=== PATIENT | female | born 1945 | race Caucasian/White ===

== ENCOUNTER 2017-02-09 13:12 | Emergency (ER) | payer MEDICARE, OTHER ==
[2017-02-09 14:25] LABS: #Basophils 0.1 thou/uL (0.0-0.2); #Eosinphils 0.2 thou/uL (0.0-0.7); #Lymphocytes 1.5 thou/uL (1.20-3.40); #Monocytes 0.8 thou/uL (0.11-0.59); #Neutrophils 4.5 thou/uL (1.40-6.50); %Basophils 1.3 % (0.0-1.0); %Eosinophils 3.4 % (0.0-10.0); Hematocrit 35.3 % (36.0-47.0); Mean Platelet Volume 7.1 fL (7.4-10.4); White Blood Cell (WBC) Count 7.2 thou/uL (4.8-10.8)
[2017-02-09 14:44] LABS: ALT (SGPT) 14 U/L (8-55); AST (SGOT) 19 U/L (5-34); Alkaline Phosphatase 108 U/L (40-150); Anion Gap 14 mmol/L (10-20); BUN (Urea Nitrogen) 22 mg/dL (9.8-20.1); Bilirubin, Total 0.4 mg/dL (0.2-1.2); Calc. Creatinine Clearance 0 mL/min (70-130); Calcium 10.1 mg/dL (7.8-10.44); Carbon Dioxide 27 mmol/L (23-31); Chloride 102 mmol/L (98-107); Estimated GFR-MDRD 32; Globulin 2.8 g/dL (2.4-3.5); Lipase 29 U/L (8-78)
[2017-02-09 14:45] LABS: Troponin I Less than 0.010 ng/mL (< 0.028)
--- NOTE | 2017-02-09 15:10 | RAD ---
PA AND LATERAL CHEST: Date: 02/09/17 HISTORY: Intermittent right upper quadrant abdominal pain over the last 3-4 days. Nausea. COMPARISON: 02/12/16. FINDINGS: Cardiac silhouette and pulmonary vasculature are within normal limits. Radiopaque suture material is again seen at the right lung apex and there is symmetric biapical pleural and parenchymal scarring ag ain present. Lungs are otherwise clear. Area of scarring overlying the right hilar region is also aga in seen and unchanged. There is right convex curvature of the thoracic spine, stable from prior study . Vascular calcifications seen in thoracic aorta. IMPRESSION: 1. Stable chronic lung changes without evidence of an acute cardiopulmonary process. 2. Right convex scoliosis thoracic spine. POS: [facility]
== END 2017-02-09 15:11 | disposition home or self-care (01) ==
LOC: SCSER 13:12
DX: R10.11 Right upper quadrant pain (principal); R11.0 Nausea; J44.9 Chronic obstructive pulmonary disease, unspecified; E03.9 Hypothyroidism, unspecified; F41.9 Anxiety disorder, unspecified; Z86.73 Personal history of transient ischemic attack (TIA), and cerebral infarction without residual deficits
CPT/HCPCS: 36415; 71020; 80053; 82553; 83690; 84484; 85025; 93005

== ENCOUNTER 2017-02-16 11:20 | Emergency (ER) | payer MEDICARE, OTHER ==
[2017-02-16 12:10] LABS: #Basophils 0.2 thou/uL (0.0-0.2); #Eosinphils 0.1 thou/uL (0.0-0.7); #Monocytes 1.2 thou/uL (0.11-0.59); #Neutrophils 9.1 thou/uL (1.40-6.50); %Basophils 1.6 % (0.0-1.0); %Lymphocytes 15.8 % (21.0-51.0); %Monocytes 9.5 % (0.0-10.0); Hematocrit 36.8 % (36.0-47.0); Mean Platelet Volume 7.6 fL (7.4-10.4); Red Blood Cell (RBC) Count 3.83 mill/uL (4.20-5.40); White Blood Cell (WBC) Count 12.7 thou/uL (4.8-10.8)
[2017-02-16 12:19] LABS: ALT (SGPT) 13 U/L (8-55); AST (SGOT) 18 U/L (5-34); Alkaline Phosphatase 100 U/L (40-150); Anion Gap 17 mmol/L (10-20); BUN (Urea Nitrogen) 30 mg/dL (9.8-20.1); Bilirubin, Total 0.5 mg/dL (0.2-1.2); Calc. Creatinine Clearance 0 mL/min (70-130); Calcium 10.4 mg/dL (7.8-10.44); Carbon Dioxide 24 mmol/L (23-31); Chloride 100 mmol/L (98-107); Estimated GFR-MDRD 37; Globulin 2.9 g/dL (2.4-3.5); Lipase 20 U/L (8-78); Protein, Total 7.3 g/dL (6.0-8.3)
[2017-02-16 12:20] LABS: Troponin I Less than 0.010 ng/mL (< 0.028)
--- NOTE | 2017-02-16 12:55 | RAD ---
PORTABLE CHEST ONE VIEW 02/16/2017 at 12:20 p.m.: HISTORY: Cough. FINDINGS: Comparison is made with the exam of 01/19/2017. The heart size is normal. Changes of COPD are again seen. No confluent areas of consolidation, pneu mothorax, or pleural effusions are identified. Mild dextroscoliosis of the thoracic spine incidental ly demonstrated. IMPRESSION: No radiographic evidence of acute cardiopulmonary process. POS: [facility]
[2017-02-16] MEDS ORDERED: Ondansetron HCl/PF 4 MG/2 ML Vial ONE (13:58)
[2017-02-16 15:42] LABS: Bilirubin Negative (Negative); Blood, Urine Negative (Negative); Glucose, Urine (Dipstick) Negative (Negative); Ketone, Urine Negative (Negative); Nitrite Negative (Negative); Protein, Urine (Dipstick) Negative (Neg-Trace); RBC/HPF None Seen HPF (0-3); Urobilinogen 0.2 mg/dL (0.2-1.0)
[2017-02-16 15:43] LABS: Bacteria/HPF 4+ HPF (None Seen)
[2017-02-16] MEDS ORDERED: Cephalexin 500 MG CAP ONE (16:05)
--- NOTE | 2017-02-21 11:40 | EKG ---
Test Reason : Blood Pressure : / mmHG Vent. Rate : 086 BPM Atrial Rate : 086 BPM P-R Int : 136 ms QRS Dur : 068 ms QT Int : 360 ms P-R-T Axes : 032 042 052 degrees QTc Int : 430 ms Normal sinus rhythm Possible Left atrial enlargement Borderline ECG Confirmed by ARTEM ROBERTSON D.O. ([id number]), editor city ERICKA PEREZ ([id number]) on 02/21/2017 11:40:06 AM Referred By: Confirmed By:ARTEM ROBERTSON D.O.
== END 2017-02-16 16:20 | disposition home or self-care (01) ==
LOC: SCSER 11:20
DX: N39.0 Urinary tract infection, site not specified (principal); E86.0 Dehydration; E03.9 Hypothyroidism, unspecified; J43.9 Emphysema, unspecified; F41.9 Anxiety disorder, unspecified; F32.9 Major depressive disorder, single episode, unspecified; Z86.73 Personal history of transient ischemic attack (TIA), and cerebral infarction without residual deficits
CPT/HCPCS: 71010; 80053; 81003; 81015; 82553; 83690; 84484; 85025; 87077; 87086; 87186; 93005; 96361; 96374; J2405

== ENCOUNTER 2018-07-19 13:18 | Outpatient (CLI) | payer MEDICARE, OTHER ==
--- NOTE | 2018-07-19 13:44 | RAD ---
EXAM: Two views chest PROVIDED CLINICAL HISTORY: Dyspnea COMPARISON: 02/09/[address] thorax on 10/22/2016 FINDINGS: Cardiac silhouette and pulmonary vasculature are within normal limits. There is symmetric biapical pleural and parenchymal scarring with radiopaque suture material seen at the right lung base apex and calcification at the left lung apex. There is a linear area of increased density seen along the medial aspect of the right hemithorax extending from the right hilar region to the right lung base with suggested lucency medially. However, this is a stable finding compared to prior chest x-ray and is likely attributable to pleural based calcifications at the poste rior medial right mid and lower lung zones with lucency likely due to mach effect related to the dense pleural-based calcification. The lungs are otherwise clear and hyperinflated. Remote left-sided rib fractures are seen right convex scoliosis thoracic spine is again noted. Chest is overall stable from prior study. IMPRESSION: 1. No acute cardiopulmonary process. 2. Stable chronic lung changes..
== END 2018-07-19 13:19 | disposition home or self-care (01) ==
LOC: RAD 13:18
PROVIDERS: ATTEND Internal Medicine Critical Care Medicine
DX: R06.00 Dyspnea, unspecified (principal)
CPT/HCPCS: 71046

== ENCOUNTER 2018-08-18 10:17 | Emergency (ER) | payer MEDICARE, OTHER ==
--- NOTE | 2018-08-18 10:54 | RAD ---
XR Chest 1 View Portable HISTORY: Dyspnea COMPARISON: 07/19/2018 FINDINGS: The heart size is normal. Chronic changes are again seen. Biapical pleural and parenchymal scarring but there are radiopaque suture material in the right lung apex and calcification of the left lung apex are redemonstrated. The lungs are well expanded without focal areas of consolidation, pneumothorax or pleural effusions. IMPRESSION: No radiographic evidence of acute cardiopulmonary process.
[2018-08-18 11:53] LABS: #Basophils 0.1 thou/uL (0.0-0.2); #Eosinphils 0.4 thou/uL (0.0-0.7); #Monocytes 0.9 thou/uL (0.11-0.59); #Neutrophils 7.1 thou/uL (1.40-6.50); %Basophils 1.3 % (0.0-1.0); %Monocytes 8.4 % (0.0-10.0); %Neutrophils 67.3 % (42.0-75.0); Hemoglobin 12.2 g/dL (12.0-16.0); Mean Corpuscular HGB CONC 32.3 g/dL (32.0-36.0); Mean Corpuscular Hemoglobin 31.8 pg (27.0-31.0); Mean Corpuscular Volume 98.6 fL (78.0-98.0); Mean Platelet Volume 8.5 fL (7.4-10.4); Platelet Count 259 thou/uL (130-400); RBC Distribution Width 12.2 % (11.5-14.5); Red Blood Cell (RBC) Count 3.85 mill/uL (4.20-5.40); White Blood Cell (WBC) Count 10.5 thou/uL (4.8-10.8)
[2018-08-18 12:19] LABS: ALT (SGPT) 15 U/L (8-55); AST (SGOT) 20 U/L (5-34); Albumin 4.7 g/dL (3.4-4.8); Alkaline Phosphatase 95 U/L (40-150); Anion Gap 18 mmol/L (10-20); BUN (Urea Nitrogen) 25 mg/dL (9.8-20.1); Bilirubin, Total 0.7 mg/dL (0.2-1.2); CK (CPK) 163 U/L (29-168); Calc. Creatinine Clearance 0 mL/min (70-130); Calcium 10.3 mg/dL (7.8-10.44); Carbon Dioxide 24 mmol/L (23-31); Chloride 101 mmol/L (98-107); Estimated GFR-MDRD 33; Globulin 2.5 g/dL (2.4-3.5); Glucose 93 mg/dL (83-110); Potassium 4.6 mmol/L (3.5-5.1); Protein, Total 7.2 g/dL (6.0-8.3); Sodium 138 mmol/L (136-145)
--- NOTE | 2018-08-18 13:31 | CT ---
Contrast-enhanced CTA chest. HISTORY: Shortness of breath. Contrast-enhanced CTA chest obtained with 2-D and 3-D reconstructions. Some areas of lung parenchymal scarring seen in the right lower lobe. Small pulmonary nodule seen in the right lower lobe unchanged since the previous exam. Calcifications seen in the aorta. Coronary artery calcination seen. No evidence of filling defects seen in the pulmonary arteries to suggest pulmonary emboli. A moderate size sliding hiatal hernia is seen. Extensive right pleural calcifications seen likely due to previous right-sided hemothorax which has r esolved. IMPRESSION: no evidence of pulmonary emboli.
--- NOTE | 2018-08-21 11:58 | EKG ---
Test Reason : SOB Blood Pressure : / mmHG Vent. Rate : 104 BPM Atrial Rate : 105 BPM P-R Int : 118 ms QRS Dur : 064 ms QT Int : 326 ms P-R-T Axes : 038 065 069 degrees QTc Int : 428 ms Sinus tachycardia Otherwise normal ECG Confirmed by XIOMARA BURNETT, CHRISSIE Infante ([id number]), assistant film editor JAYJAY GARCIA ([id number]) on 08/21/2018 11:57:46 AM Referred By: Confirmed By:CHRISSIE SOLANO MD
== END 2018-08-18 14:18 | disposition home or self-care (01) ==
LOC: ERS 10:17
DX: R06.02 Shortness of breath (principal); F41.9 Anxiety disorder, unspecified; F32.9 Major depressive disorder, single episode, unspecified; E03.9 Hypothyroidism, unspecified
CPT/HCPCS: 36415; 71045; 71275; 80053; 82550; 83605; 83880; 84484; 85025; 93005

== ENCOUNTER 2018-09-16 15:35 | Outpatient (CLI) | payer MEDICARE, OTHER ==
--- NOTE | 2018-09-16 16:00 | MMO ---
Bilateral MAMMO Bilat Screen [facility]DI+JADE. CLINICAL HISTORY: Patient is 73 years old and is seen for screening. The patient has no family history of breast cancer. The patient has no personal history of cancer. VIEWS: The views performed were: bilateral craniocaudal with tomosynthesis and bilateral mediolateral oblique with tomosynthesis. FILMS COMPARED: The present examination has been compared to prior imaging studies performed at [facility] on 09/29/2007 and 07/20/2009, and at [facility] on 08/15/1999 and 12/26/2005. MAMMOGRAM FINDINGS: There are scattered fibroglandular densities. There are vascular calcifications seen in both breasts. There are no suspicious masses, suspicious calcifications, or new areas of architectural distortion. IMPRESSION: A ROUTINE FOLLOW-UP MAMMOGRAM IN 1 YEAR IS RECOMMENDED. THE RESULTS OF THIS EXAM WERE SENT TO THE PATIENT. ACR BI-RADS Category 2 - Benign finding MAMMOGRAPHY NOTE: 1. A negative mammogram report should not delay a biopsy if a dominant of clinically suspicious mass is present. 2. Approximately 10% to 15% of breast cancers are not detected by mammography. 3. Adenosis and dense breasts may obscure an underlying neoplasm. Reported by: JUAN DIEGO BRITO MD Electonically Signed: [id number]
== END 2018-09-16 15:36 | disposition home or self-care (01) ==
LOC: BICMAMMO 15:35
PROVIDERS: ATTEND Obstetrics & Gynecology
DX: Z12.31 Encounter for screening mammogram for malignant neoplasm of breast (principal)
CPT/HCPCS: 77063; 77067

== ENCOUNTER 2018-10-13 14:25 | Observation (INO) | payer MEDICARE, OTHER ==
[2018-10-13 15:23] LABS: #Basophils 0.1 thou/uL (0.0-0.2); #Eosinphils 0.2 thou/uL (0.0-0.7); #Monocytes 0.8 thou/uL (0.11-0.59); #Neutrophils 6.4 thou/uL (1.40-6.50); %Basophils 1.3 % (0.0-1.0); %Eosinophils 2.4 % (0.0-10.0); %Lymphocytes 20.6 % (21.0-51.0); %Monocytes 8.2 % (0.0-10.0); %Neutrophils 67.6 % (42.0-75.0); Hemoglobin 12.1 g/dL (12.0-16.0); Mean Corpuscular HGB CONC 33.3 g/dL (32.0-36.0); Mean Corpuscular Hemoglobin 32.5 pg (27.0-31.0); Mean Corpuscular Volume 97.7 fL (78.0-98.0); Mean Platelet Volume 8.7 fL (7.4-10.4); Platelet Count 257 thou/uL (130-400); RBC Distribution Width 12.6 % (11.5-14.5); Red Blood Cell (RBC) Count 3.72 mill/uL (4.20-5.40); White Blood Cell (WBC) Count 9.5 thou/uL (4.8-10.8)
[2018-10-13 15:35] LABS: Anion Gap 17 mmol/L (10-20); BUN (Urea Nitrogen) 45 mg/dL (9.8-20.1); Calc. Creatinine Clearance 0 mL/min (70-130); Carbon Dioxide 24 mmol/L (23-31); Chloride 102 mmol/L (98-107); Estimated GFR-MDRD 29; Glucose 118 mg/dL (83-110); Potassium 4.1 mmol/L (3.5-5.1); Sodium 139 mmol/L (136-145)
--- NOTE | 2018-10-13 15:39 | RAD ---
TWO VIEWS CHEST: DATE: 10/13/2018. PROVIDED CLINICAL HISTORY: Cough. FINDINGS: Comparison 02/09/2017. Cardiac and mediastinal silhouette are unchanged in appearance. Vascular rachel cification involves the aortic arch. Extensive chronic obstructive changes are again seen. No focal consolidation, pleural fluid, or pneumothorax apparent. Sutures at the right lung apex are noted. Right convexity scoliosis of the thoracic spine is seen. IMPRESSION: No evidence for an acute cardiopulmonary process. POS: [facility]
[2018-10-13 17:11] LABS: Bilirubin Negative (Negative); Blood, Urine Negative (Negative); Clarity Clear (Clear); Glucose, Urine (Dipstick) Negative (Negative); Leukocyte Negative (Negative); Nitrite Negative (Negative); Protein, Urine (Dipstick) Negative (Neg-Trace); Urobilinogen 0.2 mg/dL (Less than 2)
[2018-10-13 18:58] VITALS: BMI 22.4
[2018-10-13] MEDS ORDERED: Sodium Chloride 0.9% 1,000 ML IV SCH (19:00)
[2018-10-13 19:23] LABS: Lactic Acid 1.1 mmol/L (0.5-2.2)
[2018-10-13] MEDS: Sodium Chloride 0.9% 1,000 ML IV SCH (19:57)
[2018-10-13] MEDS ORDERED: Ondansetron PF 4 MG/2 ML Vial IVP PRN (22:15)
[2018-10-13] MEDS ORDERED: Acetaminophen 325 MG TAB PO PRN (22:15)
[2018-10-13] MEDS ORDERED: Ipratropium Bromide 2.5 ml Neb NEB PRN (22:17)
[2018-10-13] MEDS ORDERED: Budesonide 0.5 MG/2 ML NEB NEB PRN (22:17)
[2018-10-13] MEDS ORDERED: Atorvastatin Calcium 10 MG TAB PO SCH (23:00)
[2018-10-13] MEDS ORDERED: ALPRAZolam 0.5 MG TAB PO SCH (23:00)
[2018-10-13] MEDS ORDERED: Calcium Carbonate + Vit D 1 TAB PO SCH (23:00)
--- NOTE | 2018-10-14 00:06 | HP ---
CHIEF COMPLAINT: Back pain, concern for "kidney infection," generalized weakness. HISTORY OF PRESENT ILLNESS: Ms. Estrella is a pleasant 73-year-old female with past medical history significant for mild dementia, on Namenda, history of previous TIA, COPD, followed by Dr. Cherry, and hypothyroidism, who presented to the hospital at the behest of her friend and daughter with a 3- to 4-day history of generalized weakness. The patient's daughter is at the bedside and provides some of the history. The patient's initial symptoms began on , which began with some back pain. The patient does have known osteoporosis and disk disease in L4 and L5, and does have chronic back pain; however, the patient did believe it was a little bit worse. She had some urinary hesitancy as well, although no other complaints of dysuria. She had no fever or chills. She did call her primary care physician, Dr. Gresham, who recommended antibiotic therapy, and the patient was prescribed some Keflex. The patient did try to take this medication, but had some associated nausea and vomiting. Over the next several days, she continued to feel generally weak. Her daughter called Dr. Gresham's office requesting urinalysis and visit, but decided to bring the patient to the emergency department for further workup and treatment instead. On arrival to our facility, her workup has been largely negative aside from an initial lactic acid of 2.4. She had no evidence of urinary tract infection on UA, her chest x-ray was clear. No white count and the patient was afebrile. Her lab work was otherwise notable for a creatinine of 1.72, and BUN of 45. The patient does have stage 3 chronic kidney disease, but baseline creatinine for her does appear to be 1.2 to 1.4. Given her acute on chronic kidney injury and mild dehydration, the patient was admitted for observation. Of note , her second lactic acid was negative. REVIEW OF SYSTEMS: 12-point review of systems performed and is negative except that stated above. PAST MEDICAL HISTORY: COPD, followed by Dr. Cherry; TIA, on aspirin and Plavix. Dementia; hypothyroidism; history of osteoporosis along with degenerative joint disease, specifically L4-L5; scoliosis. PAST SURGICAL HISTORY: Appendectomy, cholecystectomy, tonsillectomy, and bilateral cataract removal. PSYCHIATRIC HISTORY: Positive for anxiety and depression, on Wellbutrin, since her several years ago. SOCIAL HISTORY: The patient does live independently; however, her daughter, who is a registered dental hygienist, manages all of her medications. She drinks alcohol socially, she was a former smoker, but quit in 2013. ALLERGIES: SULFA DRUG, CODEINE, AND GUAIFENESIN. HOME MEDICATIONS: 1. Fluticasone nasal spray 2 sprays each naris b.i.d. 2. Xanax 0.5 mg p.o. at bedtime. 3. Aspirin 81 mg daily. 4. Atorvastatin 5 mg p.o. at bedtime. 5. Biotin 3000 mcg p.o. b.i.d. 6. Pulmicort neb solution 0.5 mg neb daily p.r.n. 7. Wellbutrin 100 mg p.o. daily. 8. Calcium carbonate/vitamin D3 600/125 units one tablet p.o. b.i.d. 9. Plavix 75 mg daily. 10. Vitamin B12 1000 mcg daily. 11. Ferrous sulfate slow-release 47.5 mg tablet one tablet p.o. b.i.d. 12. Atrovent nebulizer one neb q.8 hours p.r.n. 13. Levothyroxine 50 mcg daily. 14. Memantine 5 mg tablet daily. PHYSICAL EXAMINATION: VITAL SIGNS: Blood pressure is 154/68, pulse is 83, respirations are 20, O2 saturation is 96% on room air, and temperature is 97.8. GENERAL: The patient is an elderly female, eating her dinner, resting comfortably, in no acute distress. HEENT: Head is atraumatic and normocephalic. Mucous membranes are moist. NECK: Trachea is midline. No JVD. CV: S1 and S2. Regular rate and rhythm. No appreciable murmurs, rubs or gallops. LUNGS: Regular respiratory rate and pattern, overall decreased vesicular breath sounds bilaterally, no audible wheezing or rhonchi. ABDOMEN: Positive bowel sounds. Soft and nontender. EXTREMITIES: No edema. SKIN: Warm and dry. NEUROLOGIC: Cranial nerves 2 through 12 are grossly intact. The patient is nonfocal. LABORATORY DATA: White blood cell count 9.5, hemoglobin 12.1, hematocrit 36.3, and platelet count 257. Sodium 139, potassium 4.1, carbon dioxide 24, anion gap 17 , BUN 45, creatinine 1.72, and glucose 118. Lactic acid 2.4 and 1.1 respectively. Calcium was 10. Urinalysis was negative. ASSESSMENT: 1. Back pain and urinary hesitancy, no evidence of urinary tract infection at this time. 2. Generalized weakness and fatigue secondary to poor oral intake and mild dehydration. 3. Acute on chronic stage 3 kidney disease secondary to above, creatinine 1.72 on arrival. 4. Chronic obstructive pulmonary disease, without evidence of acute exacerbation , followed by Dr. Cherry. 5. Hypothyroidism. 6. Previous transient ischemic attack, on aspirin and Plavix. 7. Mild dementia, the patient is still able to live independently. PLAN: At this time, we will provide IV fluid resuscitation, and we will recheck a BMP in the morning. I will consult Physical Therapy as well,k as she may benefit from outpatient physical therapy versus rehab based on their recommendations. I will recheck thyroid panel. Given the patient's urinary symptoms without evidence of any infection, we will obtain a postvoid bladder scan to assess for any urinary retention. We will restart her home medications. DVT and GI prophylaxis have been addressed. Expect discharge in the morning if her kidney function improves. Further recommendations based on hospital course. Job ID: [id number] MTDD
[2018-10-14 05:52] LABS: #Basophils 0.1 thou/uL (0.0-0.2); #Eosinphils 0.6 thou/uL (0.0-0.7); #Lymphocytes 2.7 thou/uL (1.20-3.40); #Monocytes 0.9 thou/uL (0.11-0.59); #Neutrophils 4.3 thou/uL (1.40-6.50); %Basophils 1.1 % (0.0-1.0); %Eosinophils 6.7 % (0.0-10.0); %Lymphocytes 31.4 % (21.0-51.0); %Monocytes 10.5 % (0.0-10.0); %Neutrophils 50.3 % (42.0-75.0); Hemoglobin 10.1 g/dL (12.0-16.0); Mean Corpuscular HGB CONC 33.9 g/dL (32.0-36.0); Mean Corpuscular Hemoglobin 33.5 pg (27.0-31.0); Mean Corpuscular Volume 98.7 fL (78.0-98.0); Mean Platelet Volume 8.3 fL (7.4-10.4); Platelet Count 207 thou/uL (130-400); RBC Distribution Width 11.9 % (11.5-14.5); Red Blood Cell (RBC) Count 3.03 mill/uL (4.20-5.40); White Blood Cell (WBC) Count 8.5 thou/uL (4.8-10.8)
[2018-10-14] MEDS ORDERED: Levothyroxine Sodium 50 MCG TAB PO SCH (06:00)
[2018-10-14] MEDS: Sodium Chloride 0.9% 1,000 ML IV SCH (06:02)
[2018-10-14 06:13] LABS: Anion Gap 10 mmol/L (10-20); BUN (Urea Nitrogen) 30 mg/dL (9.8-20.1); Calc. Creatinine Clearance 40 mL/min (70-130); Calcium 9.5 mg/dL (7.8-10.44); Carbon Dioxide 24 mmol/L (23-31); Chloride 105 mmol/L (98-107); Estimated GFR-MDRD 45; Glucose 92 mg/dL (83-110); Potassium 3.8 mmol/L (3.5-5.1); Sodium 135 mmol/L (136-145)
[2018-10-14 06:30] LABS: Free T4 (Free Thyroxine) 0.99 ng/dL (0.70-1.48); Thyroid Stimulating Hormone 1.3575 uIU/mL (0.35-4.94)
[2018-10-14] MEDS ORDERED: Aspirin 81 mg Enteric Coated Tablet PO SCH (09:00)
[2018-10-14] MEDS ORDERED: Ferrous Sulfate 325 MG TAB PO SCH ×2 (09:00)
[2018-10-14] MEDS ORDERED: Cyanocobalamin (Vitamin B-12) 1,000 MCG TAB PO SCH (09:00)
[2018-10-14] MEDS ORDERED: BIOTIN 3000 MCG PO SCH (09:00)
[2018-10-14] MEDS ORDERED: Clopidogrel Bisulfate 75 MG TAB PO SCH (09:00)
[2018-10-14] MEDS ORDERED: Calcium Carbonate + Vit D 1 TAB PO SCH (09:00)
[2018-10-14] MEDS ORDERED: buPROPion HCl 100 MG TAB PO SCH (09:00)
[2018-10-14] MEDS ORDERED: Enoxaparin Sodium 30 MG/0.3 ML SYRINGE SC SCH (09:00)
[2018-10-14] MEDS ORDERED: Famotidine 20 MG TAB PO SCH (09:00)
[2018-10-14 12:41] VITALS: BP 106/53; TEMP 98.5
[2018-10-14] MEDS ORDERED: Atorvastatin Calcium 10 MG TAB PO SCH (21:00)
[2018-10-14] MEDS ORDERED: ALPRAZolam 0.5 MG TAB PO SCH (21:00)
== END 2018-10-14 16:39 | disposition home or self-care (01) ==
LOC: SCSER 14:25 → 2SW 17:30
PROVIDERS: ADMIT Family Medicine; ATTEND Family Medicine
DX: E86.0 Dehydration (principal); R53.1 Weakness; R53.83 Other fatigue; F03.90 Unspecified dementia, unspecified severity, without behavioral disturbance, psychotic disturbance, mood disturbance, and anxiety; J44.9 Chronic obstructive pulmonary disease, unspecified; E03.9 Hypothyroidism, unspecified; M81.0 Age-related osteoporosis without current pathological fracture; M51.36 Other intervertebral disc degeneration, lumbar region; F41.9 Anxiety disorder, unspecified; F32.9 Major depressive disorder, single episode, unspecified; N18.3 Chronic kidney disease, stage 3 (moderate); N17.9 Acute kidney failure, unspecified; Z86.73 Personal history of transient ischemic attack (TIA), and cerebral infarction without residual deficits; Z87.891 Personal history of nicotine dependence; Z79.02 Long term (current) use of antithrombotics/antiplatelets; Z79.82 Long term (current) use of aspirin; Z79.899 Other long term (current) drug therapy; Z88.8 Allergy status to other drugs, medicaments and biological substances
CPT/HCPCS: 51701; 71046; 80048 ×2; 81003; 83605; 84439; 84443; 85025 ×2; 87040; 87086; 87149 ×2; 93005; 94640 ×2; 96360; 96361 ×2; 96372; 97116; 97139 ×2; 99285; G0378 ×3; 36415; J1650; J7620

== ENCOUNTER 2018-10-17 15:03 | Observation (INO) | payer MEDICARE, OTHER ==
[2018-10-17 15:55] LABS: #Basophils 0.1 thou/uL (0.0-0.2); #Eosinphils 0.7 thou/uL (0.0-0.7); #Lymphocytes 2.2 thou/uL (1.20-3.40); #Monocytes 0.7 thou/uL (0.11-0.59); #Neutrophils 5.6 thou/uL (1.40-6.50); %Basophils 1.4 % (0.0-1.0); %Eosinophils 7.3 % (0.0-10.0); %Lymphocytes 23.8 % (21.0-51.0); %Monocytes 7.2 % (0.0-10.0); %Neutrophils 60.3 % (42.0-75.0); Hemoglobin 11.4 g/dL (12.0-16.0); Mean Corpuscular HGB CONC 33.7 g/dL (32.0-36.0); Mean Corpuscular Volume 97.9 fL (78.0-98.0); Mean Platelet Volume 8.8 fL (7.4-10.4); Platelet Count 236 thou/uL (130-400); RBC Distribution Width 12.8 % (11.5-14.5); Red Blood Cell (RBC) Count 3.45 mill/uL (4.20-5.40); White Blood Cell (WBC) Count 9.4 thou/uL (4.8-10.8)
[2018-10-17 16:09] LABS: ALT (SGPT) 13 U/L (8-55); AST (SGOT) 19 U/L (5-34); Albumin 4.1 g/dL (3.4-4.8); Alkaline Phosphatase 69 U/L (40-150); Anion Gap 16 mmol/L (10-20); BUN (Urea Nitrogen) 15 mg/dL (9.8-20.1); Bilirubin, Total 0.5 mg/dL (0.2-1.2); CK (CPK) 149 U/L (29-168); Calc. Creatinine Clearance 0 mL/min (70-130); Calcium 9.9 mg/dL (7.8-10.44); Carbon Dioxide 24 mmol/L (23-31); Chloride 104 mmol/L (98-107); Estimated GFR-MDRD 42; Globulin 2.4 g/dL (2.4-3.5); Glucose 100 mg/dL (83-110); Potassium 4.3 mmol/L (3.5-5.1); Protein, Total 6.5 g/dL (6.0-8.3); Sodium 140 mmol/L (136-145)
--- NOTE | 2018-10-17 16:18 | CT ---
CT BRAIN WITHOUT CONTRAST: Date: 10/17/18 HISTORY: Slurred speech, left arm numbness. FINDINGS: Comparison made with exam of 10/22/16. Changes of cortical atrophy and chronic small vessel ischemic disease are again seen. The ventricular size is stable and the basilar cisterns are patent. No evidence of acute infarct, hemorrhage, midlin e shift, or abnormal extra-axial fluid collections are seen. The bony calvarium is intact. The visual ized paranasal sinuses and mastoid air cells are well aerated. IMPRESSION: No CT evidence of acute intracranial process. POS: [facility]
--- NOTE | 2018-10-17 16:19 | RAD ---
PORTABLE CHEST 1 VIEW: Date: 10/17/18 Time: 1605 hours HISTORY: Chest pain. FINDINGS: Comparison made with exam of 10/13/18. Changes of COPD are again seen. The heart size is normal. No lobar consolidation, pneumothoraces, or pleural effusions are seen. IMPRESSION: No acute process. POS: [facility]
[2018-10-17] MEDS ORDERED: Aspirin Chewable 81 MG TAB ONE (16:23)
[2018-10-17 17:51] VITALS: BMI 22.3
[2018-10-17] MEDS ORDERED: ALPRAZolam 0.5 MG TAB PO SCH (21:30)
[2018-10-17] MEDS ORDERED: Atorvastatin Calcium 10 MG TAB PO SCH (21:30)
[2018-10-17] MEDS ORDERED: hydrALAZINE 20 MG/ML VIAL SLOW IVP PRN (22:20)
[2018-10-17] MEDS ORDERED: Ondansetron ODT 4 MG TAB PO PRN (22:20)
[2018-10-17] MEDS ORDERED: Acetaminophen 650 MG Suppository PR PRN (22:20)
[2018-10-17] MEDS ORDERED: Ondansetron PF 4 MG/2 ML Vial IVP PRN (22:20)
[2018-10-17] MEDS ORDERED: Budesonide 0.5 MG/2 ML NEB NEB PRN (22:26)
[2018-10-17] MEDS ORDERED: Ipratropium Bromide 2.5 ml Neb NEB PRN (22:26)
[2018-10-17] MEDS ORDERED: Atorvastatin Calcium 40 MG TAB PO SCH (22:45)
[2018-10-18 04:58] LABS: #Basophils 0.1 thou/uL (0.0-0.2); #Eosinphils 0.6 thou/uL (0.0-0.7); #Lymphocytes 2.9 thou/uL (1.20-3.40); #Monocytes 0.8 thou/uL (0.11-0.59); #Neutrophils 4.6 thou/uL (1.40-6.50); %Basophils 0.8 % (0.0-1.0); %Eosinophils 6.9 % (0.0-10.0); %Lymphocytes 32.5 % (21.0-51.0); %Monocytes 9.3 % (0.0-10.0); %Neutrophils 50.6 % (42.0-75.0); Mean Corpuscular HGB CONC 33.9 g/dL (32.0-36.0); Mean Corpuscular Hemoglobin 33.6 pg (27.0-31.0); Mean Platelet Volume 8.3 fL (7.4-10.4); Platelet Count 237 thou/uL (130-400); Red Blood Cell (RBC) Count 3.27 mill/uL (4.20-5.40)
[2018-10-18 05:21] LABS: Anion Gap 11 mmol/L (10-20); BUN (Urea Nitrogen) 16 mg/dL (9.8-20.1); Calc. Creatinine Clearance 39 mL/min (70-130); Calcium 9.6 mg/dL (7.8-10.44); Carbon Dioxide 26 mmol/L (23-31); Cardiac Risk 2.5 (Less than 4.5); Chloride 102 mmol/L (98-107); Cholesterol 130 mg/dl (< 200 Desired); Estimated GFR-MDRD 44; Glucose 91 mg/dL (83-110); HDL Cholesterol 52 mg/dL (>60 Neg Risk); LDL Cholesterol, Calculated 64 mg/dL; Sodium 135 mmol/L (136-145); Triglycerides 70 mg/dL (Less than 150)
[2018-10-18] MEDS: Levothyroxine Sodium 50 MCG TAB PO SCH (05:30)
--- NOTE | 2018-10-18 07:28 | HP ---
PRIMARY CARE DOCTOR: Luis Gresham MD. CODE STATUS: Full code. TIME OF EVALUATION: 9:16 p.m. CHIEF COMPLAINT: Left-sided numbness. HISTORY OF PRESENT ILLNESS: This is a 73-year-old female patient with past medical history of hypothyroidism, dementia, seizures, TIA, emphysema, came to the hospital after having new onset mild left arm tingling with no clear triggers, no aggravating factors. As per daughter's report to the ER staff, the patient also has some associated slurred speech. Symptoms were mild by the time of my examination, the slurred speech also came back to normal and also the symptoms of the left upper arm tingling symptoms started suddenly and alleviated by itself. REVIEW OF SYSTEMS: All systems reviewed and negative except for the findings mentioned above. PAST MEDICAL HISTORY: As mentioned in the HPI. SURGICAL HISTORY: Lung collapse surgery, appendectomy, cholecystectomy, tonsillectomy, cataract surgery. PSYCHIATRIC HISTORY: Anxiety, depression. SOCIAL HISTORY: The patient drinks socially. No drug use. She is former smoker, quit in 2013. FAMILY HISTORY: Reviewed and noncontributory to the current presentation. ALLERGIES: TO CODEINE, GUAIFENESIN, SULFA. MEDICATIONS: Reported medication: 1. Aspirin. 2. Levothyroxine. 3. Plavix. 4. Vitamin B12. 5. Biotin. 6. Lipitor. 7. Wellbutrin. 8. Xanax. 9. Namenda. 10. Budesonide. 11. Ipratropium bromide. 12. Calcium 500 plus D. 13. Ventolin HFA. PHYSICAL EXAMINATION: VITAL SIGNS: On presentation, blood pressure 139/68, with heart rate 87, respiratory rate 16, temperature 97.9, pain was 0/10, oxygen saturation was 96% on room air. GENERAL APPEARANCE: The patient is alert, oriented, in no acute distress. HEENT: Eyes: Normal conjunctivae. Moist oral mucosa. Anicteric. No JVD. RESPIRATORY: Bilateral air entry. No rales. No wheezes. Symmetric expansion. CARDIOVASCULAR: Normal rate, regular rhythm. No murmurs. No gallop. No edema. ABDOMEN: Soft. Normal bowel sounds. MUSCULOSKELETAL: Baseline range of motion and strength. No weakness. NEUROLOGIC: No evidence of any new focal weakness. Cranial nerves seem to be intact. PSYCHIATRIC: The patient is alert, oriented, no acute distress. The patient can answer simple questions, unclear if the patient's judgment might be suboptimal due to dementia. IMAGING: Brain CT was done. No CTA evidence of any acute intracranial process. Portable chest x-ray 1-view, no acute process. LABORATORY DATA: White count 9.4, hemoglobin 11.4, MCV 87.9, platelet count 236. Chemistry; sodium 140, potassium 4.3, chloride 104, carbon dioxide 24, anion gap 16, BUN 15, creatinine 1.26. GFR 42. Glucose 100. Calcium 9.9. LFTs were negative. Troponin was negative. ASSESSMENT AND PLAN: The patient will be placed in the hospital with following medical problems. 1. Possible transient ischemic attack, symptoms have improved. We will do a stroke protocol. Monitor in stroke unit. MRI/carotid Doppler/echo to be done. We will follow recommendations from Neurology. 2. Hypothyroidism. Continue hormone replacement. 3. Dementia. The patient will need events and promotions assistant as inpatient. 4. History of seizures. Reconcile home medications. 5. History of emphysema. Reconcile home medications. This is chronic, seems to be stable. 6. Deep venous thrombosis prophylaxis. Job ID: [id number]
[2018-10-18] MEDS: buPROPion HCl 100 MG TAB PO SCH (09:16)
[2018-10-18] MEDS: Enoxaparin Sodium 40 MG/0.4 ML SYRINGE SC SCH (09:16)
[2018-10-18] MEDS: Cyanocobalamin (Vitamin B-12) 1,000 MCG TAB PO SCH (09:16)
[2018-10-18] MEDS: Calcium Carbonate + Vit D 1 TAB PO SCH ×2 (09:17→21:11)
[2018-10-18] MEDS: Aspirin 81 mg Enteric Coated Tablet PO SCH (09:17)
[2018-10-18] MEDS: Ferrous Sulfate 325 MG TAB PO SCH ×2 (09:17→21:12)
[2018-10-18] MEDS: Clopidogrel Bisulfate 75 MG TAB PO SCH (09:17)
--- NOTE | 2018-10-18 09:55 | ULT ---
BILATERAL CAROTID DUPLEX ULTRASOUND: HISTORY: TIA. FINDINGS: There is a small amount of plaque in the carotid bulbs. The peak systolic velocity in the right ICA measures 82 cm/s with an end-diastolic velocity of 34 cm/s and a systolic ratio of 1.26. The peak systolic velocity in the left ICA measures 84 cm/s with an end-diastolic velocity of 29 cm/s and a systolic ratio of 1.07. Flow in both vertebral arteries remains antegrade. IMPRESSION: No evidence of hemodynamically significant stenosis. POS: [facility]
--- NOTE | 2018-10-18 10:34 | MRI ---
3MRI BRAIN WITHOUT CONTRAST: Date: 10/18/18 HISTORY: TIA, generalized weakness. FINDINGS: Comparison made with MRI of 10/23/16. Correlation made with previous day's CT scan. No restricted diffusion is seen. The ventricular size is appropriate and the basilar cisterns are pat ent. There are changes of cortical atrophy and chronic small vessel ischemic disease. No evidence of acute infarct, hemorrhage, midline shift, or abnormal extra-axial fluid collections are seen. The vis ualized paranasal sinuses are well aerated. IMPRESSION: No evidence of acute intracranial process. ' POS: [facility]
--- NOTE | 2018-10-18 16:48 | CON ---
DATE OF CONSULTATION: 10/18/2018 CONSULTING PHYSICIAN: Hospitalist Service. IMPRESSION: Transient ischemic attack on maximum medical therapy. PLAN: 1. Continue current treatment. 2. Review echocardiogram. HISTORY OF PRESENT ILLNESS: Ms. Estrella is a 73-year-old woman with past history of TIA. She presented with slight slurred speech and left hand numbness that lasted about 10 minutes. MRI of the brain shows extensive small vessel ischemic changes, but no acute abnormalities. Her carotid ultrasound shows no stenosis. She is compliant with the medication. PAST MEDICAL HISTORY: Mild dementia, seizures, and TIA. ALLERGIES: CODEINE, SULFA, AND GUAIFENESIN. SOCIAL HISTORY: No tobacco use. FAMILY HISTORY: Noncontributory. REVIEW OF SYSTEMS: Ten-system review of systems is otherwise negative. PHYSICAL EXAMINATION: VITAL SIGNS: Stable. She has been afebrile. HEENT: Pupils are equal and reactive. Conjunctivae are clear. Oropharynx clear. Cranium, normocephalic and atraumatic. NECK: Supple. EXTREMITIES: No cyanosis or edema. NEUROLOGIC: She is alert and appropriate. Her speech is fluent and clear. Attention and concentration are normal. There was no facial asymmetry. She had good strength bilaterally. There was no abnormal movements. No tremor. Dysmetria is present. Sensations intact to touch. IMAGING PROCEDURE: EKG, normal sinus rhythm. SUMMARY: This is a 73-year-old with recurrent brief episodes suggestive of TIA. She is currently on best medical therapy. I do not see any need for changes. Job ID: [id number]
[2018-10-18] MEDS ORDERED: Atorvastatin Calcium 10 MG TAB PO SCH (21:00)
[2018-10-18] MEDS ORDERED: Atorvastatin Calcium 40 MG TAB PO SCH (21:00)
[2018-10-18] MEDS ORDERED: ALPRAZolam 0.5 MG TAB PO SCH (21:00)
[2018-10-18] MEDS: Acetaminophen 325 MG TAB PO PRN (21:12)
[2018-10-19] MEDS: Levothyroxine Sodium 50 MCG TAB PO SCH (07:40)
[2018-10-19 07:48] VITALS: BP 110/63; TEMP 98.2
[2018-10-19] MEDS: Ferrous Sulfate 325 MG TAB PO SCH (09:02)
[2018-10-19] MEDS: Enoxaparin Sodium 40 MG/0.4 ML SYRINGE SC SCH ×2 (09:02→09:08)
[2018-10-19] MEDS: Cyanocobalamin (Vitamin B-12) 1,000 MCG TAB PO SCH (09:02)
[2018-10-19] MEDS: Aspirin 81 mg Enteric Coated Tablet PO SCH (09:03)
[2018-10-19] MEDS: buPROPion HCl 100 MG TAB PO SCH (09:03)
[2018-10-19] MEDS: Clopidogrel Bisulfate 75 MG TAB PO SCH (09:03)
[2018-10-19] MEDS: Calcium Carbonate + Vit D 1 TAB PO SCH (09:03)
[2018-10-19] MEDS: Acetaminophen 325 MG TAB PO PRN (09:26)
--- NOTE | 2018-10-20 03:15 | DIS ---
DATE OF ADMISSION: 10/17/2018 DATE OF DISCHARGE: 10/19/2018 REASON FOR HOSPITALIZATION: TIA. SIGNIFICANT FINDINGS: Negative CVA workup was found. PROCEDURES PERFORMED/TREATMENTS RENDERED: A CVA workup was performed and found to be benign. CONDITION ON DISCHARGE: Stable. SPECIFIC INSTRUCTIONS FOR THE PATIENT/FAMILY: 1. The patient is to see her primary care physician in the next 5 to 7 days-or return to acute care hospital immediately for reevaluation. 2. The patient is recommended to follow up with her fiberglass insulation installer in the next 1 to 2 weeks-or return to acute care hospital immediately for re-evaluation. 3. The patient is to take all home medications as directed, the patient was started on Spiriva daily therapy as her reactive airway disease does not seem controlled and she is using breathing treatments 3 to 4 times a day every day. 4. The patient is recommended to return to acute care hospital immediately if signs or symptoms return, worsen, or any other new symptoms occur. HOSPITAL COURSE: Ms. Estrella is a pleasant 73-year-old white female who presented to [facility] on 10/18/2018, with TIA symptoms. The patient initially with left arm numbness, tingling, and slurred speech. Upon arrival to the hospital, all of the patient's symptoms have resolved completely. The patient underwent a very thorough examination, rigorous radiographic studies for CVA, and was seen by Neurology-please see full medical record for all details. The patient had an MRI of the brain, please see full report for details, no acute CVA or other acute intracranial process was identified. The patient had echocardiogram, please see full report for details, the patient with preserved ejection fraction of 68% without significant valvular pathology or evidence of PFO or ASD. The patient had ultrasound study of the carotids-please see full report for details-no evidence of hemodynamically significant stenosis. The patient was seen by Neurology, please see full consultation note for details, Neurology recommending the patient is safe for discharge. The patient worked with nursing staff and was able to ambulate to and from the restroom and walk around the halls without difficulties. The patient was recommended safer discharge with close followup in the outpatient setting. The patient tells me that she does not see her primary care provider very often. I recommended to her that she sees the primary care physician in the next 5 to 7 days for further medical management and adjustment of all the home medications-patient was informed that if she is unable to see her primary care physician, she should return to acute care hospital immediately for reevaluation. The patient tells me that she does have a fiberglass insulation installer; however, she does not see them very often and she has been using her small volume nebulizers 3 to 4 times per day every day. The patient is not on any maintenance therapy for reactive airway disease and I recommended she start Spiriva. The patient is recommended to follow up with Pulmonology in the next 1 to 2 weeks-or return to acute care hospital immediately for reevaluation. The patient was explicitly informed that if any signs or symptoms return, worsen, or any other new symptoms occur, she is to return to acute care hospital immediately. Greater than 36 minutes spent with discharge planning and coordinating the care of this patient. Job ID: [id number]
== END 2018-10-19 09:58 | disposition home or self-care (01) ==
LOC: SCSER 15:03 → 2SE 16:30 → SCSER 17:14
PROVIDERS: ADMIT Internal Medicine; ATTEND Internal Medicine
DX: G45.9 Transient cerebral ischemic attack, unspecified (principal); E03.9 Hypothyroidism, unspecified; F03.90 Unspecified dementia, unspecified severity, without behavioral disturbance, psychotic disturbance, mood disturbance, and anxiety; F41.9 Anxiety disorder, unspecified; F32.9 Major depressive disorder, single episode, unspecified; J44.9 Chronic obstructive pulmonary disease, unspecified; Z87.891 Personal history of nicotine dependence; Z88.5 Allergy status to narcotic agent; Z88.2 Allergy status to sulfonamides; Z88.8 Allergy status to other drugs, medicaments and biological substances; Z79.82 Long term (current) use of aspirin; Z79.01 Long term (current) use of anticoagulants; Z79.899 Other long term (current) drug therapy
CPT/HCPCS: 70450; 70551; 71045; 80048; 80053; 80061; 82550; 84484; 85025 ×2; 93005; 93306; 93880; 94640 ×3; 96372; 99285; G0378 ×4; 36415; J1650; J7620; J7626

== ENCOUNTER 2019-02-24 14:49 | Observation (INO) | payer MEDICARE, OTHER ==
[2019-02-24 17:21] LABS: #Basophils 0.1 thou/uL (0.0-0.2); #Eosinphils 0.5 thou/uL (0.0-0.7); #Lymphocytes 2.4 thou/uL (1.20-3.40); #Monocytes 1.1 thou/uL (0.11-0.59); #Neutrophils 5.7 thou/uL (1.40-6.50); %Basophils 0.8 % (0.0-1.0); %Eosinophils 4.7 % (0.0-10.0); %Lymphocytes 24.4 % (21.0-51.0); %Monocytes 11.1 % (0.0-10.0); Hemoglobin 11.3 g/dL (12.0-16.0); Mean Corpuscular HGB CONC 33.7 g/dL (32.0-36.0); Mean Corpuscular Volume 97.8 fL (78.0-98.0); Mean Platelet Volume 7.8 fL (7.4-10.4); Platelet Count 247 thou/uL (130-400); RBC Distribution Width 11.7 % (11.5-14.5); Red Blood Cell (RBC) Count 3.42 mill/uL (4.20-5.40); White Blood Cell (WBC) Count 9.7 thou/uL (4.8-10.8)
[2019-02-24 17:31] LABS: Bacteria/HPF 4+ HPF (None Seen); Bilirubin Negative (Negative); Clarity Turbid (Clear); Glucose, Urine (Dipstick) Normal (Negative); Leukocyte 500 Leu/uL (Negative); Nitrite Negative (Negative); Protein, Urine (Dipstick) 10 mg/dL (Neg-Trace); Squamous Epithelial 0-3 HPF (0-3); Urobilinogen Normal mg/dL (Less than 2); WBC/HPF Greater than 50 HPF (0-3)
[2019-02-24 17:34] LABS: Blood, Urine Trace (Negative)
[2019-02-24 17:39] LABS: ALT (SGPT) 10 U/L (8-55); AST (SGOT) 18 U/L (5-34); Albumin 4.1 g/dL (3.4-4.8); Alkaline Phosphatase 107 U/L (40-110); Anion Gap 14 mmol/L (10-20); BUN (Urea Nitrogen) 20 mg/dL (9.8-20.1); Bilirubin, Total 0.7 mg/dL (0.2-1.2); Calc. Creatinine Clearance 0 mL/min (70-130); Calcium 9.7 mg/dL (7.8-10.44); Carbon Dioxide 24 mmol/L (23-31); Chloride 103 mmol/L (98-107); Estimated GFR-MDRD 41; Globulin 2.8 g/dL (2.4-3.5); Glucose 97 mg/dL (83-110); Potassium 4.1 mmol/L (3.5-5.1); Protein, Total 6.9 g/dL (6.0-8.3); Sodium 137 mmol/L (136-145)
[2019-02-24] MEDS ORDERED: cefTRIAXone\\ROCEPHIN 1 GM VIAL ONE (18:25)
--- NOTE | 2019-02-24 18:25 | RAD ---
EXAM: XR Ribs Rt>= 2 View W/PA CXR PROVIDED CLINICAL HISTORY: Injury after a fall. Patient complains of right-sided rib pain. COMPARISON: 10/17/2018 FINDINGS: Cardiac silhouette and pulmonary vasculature are within normal limits. No pneumothorax or pleural eff usion is seen. There are emphysematous changes seen within the upper lung zones with generalized chronic lung changes. There is calcified pleural based plaque again seen on the right predominantly a t the right lung base with biapical pleural and parenchymal scarring again seen. There is radiopaque suture material seen in the right lung apex. Remote left-sided rib fractures are again not ed. No acute right-sided fracture is visualized. Right convex scoliosis thoracic spine is again noted. Vascular calcifications are seen in the thoracic aorta. IMPRESSION: 1. Chronic bilateral lung changes greater at the right lung base similar to the prior study. 2. Calcified pleural-based plaques on the right are again noted. 3. Remote left-sided rib fractures are noted. No acute rib fracture is seen.
--- NOTE | 2019-02-24 18:49 | CT ---
NONCONTRAST CT HEAD: 02/24/19 HISTORY: Altered mental status and generalized weakness. Recent fall. COMPARISON: 10/17/18. FINDINGS: Again noted is confluent diminished attenuation throughout the periventricular white matter which is nonspecific but likely reflective of severe chronic small vessel ischemic changes. The degree of whit e matter ischemic changes precludes evaluation for an acute white matter infarction. There is no evid ence of an acute cortical infarction, hemorrhage, mass effect or midline shift. There is mild cerebral volume loss. The ventricular system is normal in size, shape, and position for the degree of sulcal atrophy. There has been no significant interval change when compared to the prior exam. IMPRESSION: 1. No acute intracranial abnormalities demonstrated. 2. Findings likely reflective of severe chronic small vessel ischemic changes. 3. Mild cerebral volume loss. POS: YOHAN
[2019-02-24] MEDS ORDERED: Piperacillin/Tazobactam 4.5 GM VIAL ONE (20:08)
[2019-02-24] MEDS ORDERED: diphenhydrAMINE 50 MG/ML VIAL ONE (20:12)
[2019-02-24] MEDS ORDERED: Albuterol Sulfate 2.5 mg/3 ml Neb ONE (20:40)
[2019-02-24 22:14] VITALS: BMI 20.5
[2019-02-24] MEDS ORDERED: Budesonide 0.5 MG/2 ML NEB NEB PRN (22:46)
[2019-02-24] MEDS ORDERED: Fluticasone Propionate Nasal Spray 16 gm Bottle NASAL PRN (22:46)
[2019-02-24] MEDS ORDERED: Atorvastatin Calcium 10 MG TAB PO SCH (23:00)
[2019-02-24] MEDS ORDERED: clonazePAM 0.5 MG TAB PO SCH (23:15)
--- NOTE | 2019-02-24 23:39 | HP ---
TIME OF ASSESSMENT: 2200 hours CHIEF COMPLAINT: Fall, urinary frequency. HISTORY OF PRESENT ILLNESS: Ms. Estrella is a 73-year-old woman who presented to the emergency department after a mechanical fall that happened today when she misstepped. She fell with her right side into a chair and denies any head injury or loss of consciousness; denies having any lightheadedness or dizziness. States she has felt generally tired and with some urinary frequency, which she attributes to a persisting urinary tract infection. She was treated with a course of Cipro last week. The patient states she did not feel she was completely better after completing the course of antibiotics. The patient denies any dysuria or hematuria. She has not had any fevers, but does report having chills. Denies any chest pain or palpitations. She reports a chronic cough associated with her history of COPD, which has been productive for clear sputum. The cough has not been worse from her baseline. She uses oxygen at home. In the emergency department, she had a chest x-ray with rib series that showed chronic bilateral lung changes greater at the right lung base and similar to prior study. She was noted to have calcified pleural-based plaques on the right side, which were previously seen. She was also noted to have remote left-sided rib fractures, but no acute rib fractures. The patient had a urinalysis done, which showed a turbid appearance, trace blood, 500 leukocyte esterase, 7 to 10 red blood cells, greater than 50 white blood cells, and 4+ bacteria. The urine culture was sent off. White count was normal at 9.7, neutrophils 59. The patient was started on IV antibiotics with Rocephin. She did experience itching shortly after and therefore it was discontinued and she was treated with Benadryl. The patient was experiencing shortness of breath at that time and apparently had saturations of 86%. Her oxygen was increased to 4 L from 2 L and her saturations improved to 96%. The patient was then given a dose of Zosyn. She had no further reaction. REVIEW OF SYSTEMS: At this present time, the patient reports feeling drowsy, but difficulty breathing settled and so has itching. She denies any chest pain. Does report feeling a little bit cold. Reports having some mild discomfort in the right lower rib cage, but states it is only brought on by palpation, otherwise she is comfortable and without any significant complaints. ALLERGIES: 1. GUAIFENESIN. 2. SULFA. 3. CODEINE. 4. CEFTRIAXONE. CURRENT MEDICATIONS: 1. Proventil. 2. Lipitor. 3. Biotin. 4. Pulmicort. 5. Wellbutrin. 6. Calcium carbonate. 7. Klonopin. 8. Vitamin B12. 9. Topiramate. 10. . 11. Iron. 12. Synthroid. 13. Memantine. 14. Omeprazole. 15. Aspirin. 16. Plavix. PAST MEDICAL HISTORY: 1. COPD, on home O2. 2. History of hypothyroidism. 3. Dementia. 4. Generalized seizures. 5. Previous TIA. 6. Anxiety. 7. Depression. PAST SURGICAL HISTORY: 1. Lung collapse requiring surgery. 2. Appendectomy. 3. Cholecystectomy. 4. Tonsillectomy. 5. Bilateral cataract surgery. 6. Dental implant surgeries. SOCIAL HISTORY: The patient lives at home. Denies any heavy alcohol use. She does smoke previously, but quit more than 10 years ago. Denies any drug use. PHYSICAL EXAMINATION: GENERAL: The patient appears well developed, drowsy but easily awoken and answering questions appropriately. VITAL SIGNS: Temperature 97.6, pulse 102, respirations 18, O2 saturation 98% on 2 L by nasal cannula and BP 122/61. HEENT: Normocephalic and atraumatic. Pupils are equal, round, and reactive to light. Sclerae anicteric. Oropharynx is clear. NECK: Supple. LUNGS: Clear to auscultation bilaterally. Reduced breath sounds at the bilateral bases. No crackles or rhonchi. CARDIAC: Regular rate and rhythm. Mild discomfort to the right lower lateral rib cage, but no bony deformity. Normal chest expansion. ABDOMEN: Soft, nontender, nondistended. Normoactive bowel sounds present. No guarding or rigidity. EXTREMITIES: No lower leg swelling or edema. NEUROLOGIC: Alert and oriented x3, no focal deficits. SKIN: Warm and dry. INVESTIGATIONS: As mentioned above in HPI. EKG done in the emergency department showed normal sinus rhythm with a heart rate of 87. No ST changes or T-wave abnormalities. The patient had a CT of the brain done in the emergency department, which showed no acute intracranial abnormalities. She had findings suggestive of severe chronic small-vessel ischemic changes and mild cerebral volume loss. This was done due to her fall. IMPRESSION AND PLAN: Ms. Estrella is a 73-year-old woman who presents with mechanical fall and is being admitted for management of the followin. Urinary tract infection. The patient failed outpatient treatment. Completed a course of Cipro last week. Continues with urinary frequency. Urinalysis positive and urine culture has been sent. Given Rocephin in the ER to which she had an allergic reaction. This has now been marked as an allergy. We will continue Zosyn. 2. Fall. The patient states she missed a step, but has been feeling generally tired. She had an elevated creatinine of 1.27, which appears essentially stable. We will obtain orthostatic blood pressures. 3. Chronic obstructive pulmonary disease. Resume home medications and continue O2. She is on her regular amount of oxygen at 2 L by nasal cannula. Chest x-ray unremarkable. 4. Hypothyroidism. Resume home medications once verified. 5. History of seizures. Resume home medications. 6. Gastrointestinal prophylaxis with famotidine. 7. Deep venous thrombosis prophylaxis with mechanical SCDs. 8. Code status full. Surrogate decision maker is her son, Vasiliy Estrella. The patient's case discussed with attending who agrees with plan of care as described above. Job ID: [id number]
[2019-02-24] MEDS ORDERED: Albuterol Sulfate 2.5 mg/3 ml Neb NEB SCH (23:59)
[2019-02-25] MEDS: Piperacillin/Tazobactam 2.25 GM in Sodium Chloride 0.9% 100 ML IVPB SCH ×4 (01:36→20:00)
[2019-02-25] MEDS: Levothyroxine Sodium 50 MCG TAB PO SCH (05:30)
[2019-02-25] MEDS: Ferrous Sulfate 325 MG TAB PO SCH ×2 (08:06→20:01)
[2019-02-25] MEDS: Aspirin 81 mg Enteric Coated Tablet PO SCH (08:07)
[2019-02-25] MEDS: Calcium Carbonate + Vit D 1 TAB PO SCH ×2 (08:07→20:01)
[2019-02-25] MEDS: Cyanocobalamin (Vitamin B-12) 1,000 MCG TAB PO SCH (08:07)
[2019-02-25] MEDS: Clopidogrel Bisulfate 75 MG TAB PO SCH (08:07)
[2019-02-25] MEDS: buPROPion HCl 100 MG TAB PO SCH (08:07)
[2019-02-25] MEDS ORDERED: clonazePAM 0.5 MG TAB PO SCH (09:00)
--- NOTE | 2019-02-25 12:25 | PDOC.HOSPP ---
- Subjective Encounter Date: 02/25/19 Encounter Time: 09:40 Subjective: Upper chest pain, R & L, tender to palpation. - Objective Vital Signs & Weight: Vital Signs (12 hours) Temp Pulse Resp BP Pulse Ox 02/25/19 07:48 97.4 F L 86 14 111/73 91 L 02/25/19 06:37 96 02/25/19 06:36 86 16 96 02/25/19 03:59 97.8 F 86 16 116/70 98 Weight Weight 123 lb I&O: 02/24/19 02/25/19 02/26/19 06:59 06:59 06:59 Intake Total 330 Balance 330 Result Diagrams: 02/24/19 17:11 02/24/19 17:11 Hospitalist ROS - Medication Medications: Active Medications Generic Name Dose Route Start Last Admin Trade Name Freq PRN Reason Stop Dose Admin Albuterol/Ipratropium 3 ml 02/25/19 01:00 02/25/19 06:36 Duoneb NEB 3 ml [id number] FLORA Administration Aspirin 81 mg 02/25/19 09:00 02/25/19 08:07 Ecotrin PO 81 mg DAILY FLORA Administration Bupropion HCl 100 mg 02/25/19 09:00 02/25/19 08:07 Wellbutrin PO 100 mg DAILY FLORA Administration Calcium/Vitamin D 1 tab 02/25/19 09:00 02/25/19 08:07 Caltrate 600 + Vit D PO 1 tab BID FLORA Administration Clopidogrel Bisulfate 75 mg 02/25/19 09:00 02/25/19 08:07 Plavix PO 75 mg DAILY FLORA Administration Cyanocobalamin 1,000 mcg 02/25/19 09:00 02/25/19 08:07 Vitamin B-12 PO 1,000 mcg DAILY FLORA Administration Ferrous Sulfate 325 mg 02/25/19 09:00 02/25/19 08:06 Feosol PO 325 mg BID FLORA Administration Piperacillin Sod/Tazobactam 100 mls @ 200 mls/hr 02/25/19 02:00 02/25/19 08: 06 Sod 2.25 gm/ Sodium Chloride IVPB 100 mls 0200,0800,1400,2000 FLORA Administration Levothyroxine Sodium 50 mcg 02/25/19 06:00 02/25/19 05:30 Synthroid PO 50 mcg 0600 FLORA Administration Pantoprazole Sodium 40 mg 02/25/19 09:00 02/25/19 08:07 Protonix PO 40 mg DAILY FLORA Administration - Exam General Appearance: NAD Neck: no JVD Heart: RRR Respiratory: CTAB Gastrointestinal: soft Extremities: no edema Neurological: no weakness Psychiatric: somnolent Hosp A/P (1) UTI (urinary tract infection) Status: Acute (2) COPD (chronic obstructive pulmonary disease) Status: Acute Plan: stable.. (3) History of seizure Code(s): Z87.898 - PERSONAL HISTORY OF OTHER SPECIFIED CONDITIONS Status: Acute (4) Status post fall Code(s): Z91.81 - HISTORY OF FALLING Status: Acute (5) Hypothyroidism Code(s): E03.9 - HYPOTHYROIDISM, UNSPECIFIED Status: Chronic - Plan Somnolence, fall may be related to benzodiazepine.. Decrease Clonazepam.. Consult manager social media as patient may need placement.. Continue antibiotics..
[2019-02-25] MEDS: clonazePAM 0.5 MG TAB PO SCH (20:00)
[2019-02-25] MEDS: Atorvastatin Calcium 10 MG TAB PO SCH (20:01)
[2019-02-25] MEDS: Arformoterol 15 MCG/2 ML NEB NEB SCH (22:01)
[2019-02-25] MEDS: BIOTIN 3000 MCG PO SCH ×2 (23:02→23:03)
[2019-02-25] MEDS: Melatonin 3 MG TAB PO PRN (23:24)
[2019-02-26] MEDS: Piperacillin/Tazobactam 2.25 GM in Sodium Chloride 0.9% 100 ML IVPB SCH ×4 (01:22→20:07)
[2019-02-26] MEDS: Levothyroxine Sodium 50 MCG TAB PO SCH (05:06)
[2019-02-26] MEDS: Arformoterol 15 MCG/2 ML NEB NEB SCH ×2 (07:29→20:40)
[2019-02-26] MEDS: Cyanocobalamin (Vitamin B-12) 1,000 MCG TAB PO SCH (08:58)
[2019-02-26] MEDS: clonazePAM 0.5 MG TAB PO SCH ×2 (08:58→20:08)
[2019-02-26] MEDS: Calcium Carbonate + Vit D 1 TAB PO SCH ×2 (08:58→20:08)
[2019-02-26] MEDS: Clopidogrel Bisulfate 75 MG TAB PO SCH (08:58)
[2019-02-26] MEDS: Aspirin 81 mg Enteric Coated Tablet PO SCH (08:58)
[2019-02-26] MEDS: Ferrous Sulfate 325 MG TAB PO SCH ×2 (08:58→20:08)
[2019-02-26] MEDS: buPROPion HCl 100 MG TAB PO SCH (08:58)
--- NOTE | 2019-02-26 12:08 | PDOC.HOSPP ---
- Subjective Encounter Date: 02/26/19 Encounter Time: 10:20 Subjective: Expresses no complaint. More alert today.. - Objective Vital Signs & Weight: Vital Signs (12 hours) Temp Pulse Resp BP BP Pulse Ox 02/26/19 08:35 98.0 F 103 H 18 99/56 L 96 02/26/19 07:32 94 L 02/26/19 07:31 88 16 94 L 02/26/19 07:29 88 16 94 L 02/26/19 03:52 97.8 F 91 16 97/58 L 92 L 02/26/19 01:13 100 14 92 L Weight Weight 123 lb I&O: 02/25/19 02/26/19 02/27/19 06:59 06:59 06:59 Intake Total 330 830 Balance 330 830 Result Diagrams: 02/24/19 17:11 02/24/19 17:11 Hospitalist ROS - Medication Medications: Active Medications Generic Name Dose Route Start Last Admin Trade Name Freq PRN Reason Stop Dose Admin Albuterol/Ipratropium 3 ml 02/25/19 01:00 02/26/19 07:31 Duoneb NEB 3 ml [id number] FLORA Administration Arformoterol Tartrate 15 mcg 02/25/19 18:30 02/26/19 07:29 Brovana NEB 15 mcg BID-RT FLORA Administration Aspirin 81 mg 02/25/19 09:00 02/26/19 08:58 Ecotrin PO 81 mg DAILY FLORA Administration Atorvastatin Calcium 5 mg 02/25/19 21:00 02/25/19 20:01 Lipitor PO 5 mg HS FLORA Administration Bupropion HCl 100 mg 02/25/19 09:00 02/26/19 08:58 Wellbutrin PO 100 mg DAILY LFORA Administration Calcium/Vitamin D 1 tab 02/25/19 09:00 02/26/19 08:58 Caltrate 600 + Vit D PO 1 tab BID FLORA Administration Clonazepam 0.25 mg 02/25/19 21:00 02/26/19 08:58 Klonopin PO 0.25 mg BID FLORA Administration Clopidogrel Bisulfate 75 mg 02/25/19 09:00 02/26/19 08:58 Plavix PO 75 mg DAILY FLORA Administration Cyanocobalamin 1,000 mcg 02/25/19 09:00 02/26/19 08:58 Vitamin B-12 PO 1,000 mcg DAILY FLORA Administration Ferrous Sulfate 325 mg 02/25/19 09:00 02/26/19 08:58 Feosol PO 325 mg BID FLORA Administration Piperacillin Sod/Tazobactam 100 mls @ 200 mls/hr 02/25/19 02:00 02/26/19 08: 57 Sod 2.25 gm/ Sodium Chloride IVPB 100 mls 0200,0800,1400,2000 FLORA Administration Levothyroxine Sodium 50 mcg 02/25/19 06:00 02/26/19 05:06 Synthroid PO 50 mcg 0600 FLORA Administration Melatonin 3 mg 02/25/19 23:16 02/25/19 23:24 Melatonin PO 3 mg HS PRN Administration Insomnia Memantine 5 mg 02/25/19 21:00 02/25/19 20:02 Namenda PO 5 mg HS FLORA Administration Pantoprazole Sodium 40 mg 02/25/19 09:00 02/26/19 08:58 Protonix PO 40 mg DAILY FLORA Administration - Exam General Appearance: NAD Neck: no JVD Heart: RRR Respiratory: CTAB Gastrointestinal: soft Extremities: no edema Neurological: no weakness Psychiatric: normal affect Hosp A/P (1) UTI (urinary tract infection) Status: Acute (2) COPD (chronic obstructive pulmonary disease) Status: Acute (3) History of seizure Code(s): Z87.898 - PERSONAL HISTORY OF OTHER SPECIFIED CONDITIONS Status: Acute (4) Status post fall Code(s): Z91.81 - HISTORY OF FALLING Status: Acute (5) Hypothyroidism Code(s): E03.9 - HYPOTHYROIDISM, UNSPECIFIED Status: Chronic - Plan Somnolence, fall most likely due to benzodiazepine.. Patient is more alert today... Continue antibiotics.. Possible discharge tomorrow.
[2019-02-26] MEDS: Diabetic Tussin 200 MG/10 ML UDCUP PO PRN ×2 (12:35→16:55)
[2019-02-26] MEDS ORDERED: Enoxaparin Sodium 40 MG/0.4 ML SYRINGE SC SCH (12:45)
[2019-02-26] MEDS: Atorvastatin Calcium 10 MG TAB PO SCH (20:09)
[2019-02-26] MEDS: Melatonin 3 MG TAB PO PRN (22:01)
[2019-02-27] MEDS: Piperacillin/Tazobactam 2.25 GM in Sodium Chloride 0.9% 100 ML IVPB SCH ×2 (02:05→08:01)
[2019-02-27] MEDS ORDERED: Ibuprofen 200 MG TAB PO SCH (03:15)
[2019-02-27] MEDS: Levothyroxine Sodium 50 MCG TAB PO SCH (05:31)
[2019-02-27] MEDS: Arformoterol 15 MCG/2 ML NEB NEB SCH (07:48)
[2019-02-27] MEDS ORDERED: Piperacillin/Tazobactam 2.25 GM VIAL ONE (07:57)
[2019-02-27] MEDS: Clopidogrel Bisulfate 75 MG TAB PO SCH (08:02)
[2019-02-27] MEDS: Calcium Carbonate + Vit D 1 TAB PO SCH (08:02)
[2019-02-27] MEDS: buPROPion HCl 100 MG TAB PO SCH (08:02)
[2019-02-27] MEDS: Cyanocobalamin (Vitamin B-12) 1,000 MCG TAB PO SCH (08:02)
[2019-02-27] MEDS: Ferrous Sulfate 325 MG TAB PO SCH (08:02)
[2019-02-27] MEDS: clonazePAM 0.5 MG TAB PO SCH (08:03)
[2019-02-27] MEDS: Aspirin 81 mg Enteric Coated Tablet PO SCH (08:06)
[2019-02-27] MEDS ORDERED: Enoxaparin Sodium 40 MG/0.4 ML SYRINGE SC SCH (09:00)
[2019-02-27 11:34] VITALS: BP 101/63; TEMP 98
--- NOTE | 2019-02-28 07:37 | DIS ---
DATE OF ADMISSION: 02/24/2019 DATE OF DISCHARGE: 02/27/2019 ADMITTING DIAGNOSES: Urinary tract infection, status post fall, chronic obstructive pulmonary disease, hypothyroidism, history of seizure disorder. DISCHARGE DIAGNOSES: Urinary tract infection, status post fall, chronic obstructive pulmonary disease, hypothyroidism, history of seizure disorder, fall most likely due to benzodiazepine. SENIOR [employer] SYSTEMS PROGRAMMER: None. PROCEDURE: Brain CT, chest x-ray with rib series. COURSE OF HOSPITALIZATION: Uncomplicated, responded well to management, benzodiazepine was decreased. The patient is currently alert and coherent, in no distress. PHYSICAL EXAMINATION: GENERAL: Today, she is alert, responsive, cooperative, in no distress. VITAL SIGNS: Latest, temperature of 97.8, pulse rate 80, respiratory rate 16, blood pressure 108/69. HEAD AND NECK: Normal. HEART: She has regular S1 and S2. LUNGS: Clear. ABDOMEN: Benign. EXTREMITIES: Limbs show no edema. NEUROLOGIC: She moves all extremities. The patient, as mentioned earlier, is stable. She is being discharged home. She is to follow up with her primary care physician. Job ID: [id number]
== END 2019-02-27 13:10 | disposition home or self-care (01) ==
LOC: ERS 14:49 → SURG A 21:56
PROVIDERS: ADMIT Emergency Medicine; ATTEND Emergency Medicine
DX: N39.0 Urinary tract infection, site not specified (principal); B96.20 Unspecified Escherichia coli [E. coli] as the cause of diseases classified elsewhere; J44.9 Chronic obstructive pulmonary disease, unspecified; E03.9 Hypothyroidism, unspecified; G40.909 Epilepsy, unspecified, not intractable, without status epilepticus; F03.90 Unspecified dementia, unspecified severity, without behavioral disturbance, psychotic disturbance, mood disturbance, and anxiety; F41.9 Anxiety disorder, unspecified; F32.9 Major depressive disorder, single episode, unspecified; J98.4 Other disorders of lung; Z86.73 Personal history of transient ischemic attack (TIA), and cerebral infarction without residual deficits; Z87.891 Personal history of nicotine dependence; Z79.02 Long term (current) use of antithrombotics/antiplatelets; Z79.82 Long term (current) use of aspirin; Z79.899 Other long term (current) drug therapy; Z88.1 Allergy status to other antibiotic agents; Z88.2 Allergy status to sulfonamides; Z88.5 Allergy status to narcotic agent; Z88.8 Allergy status to other drugs, medicaments and biological substances; Z99.81 Dependence on supplemental oxygen; W01.190A Fall on same level from slipping, tripping and stumbling with subsequent striking against furniture, initial encounter
CPT/HCPCS: 70450; 71101; 80053; 82140; 85025; 87040; 87077; 87086; 87186; 93005; 94640 ×4; 96365; 96366 ×3; 96372 ×2; 96375; 97116; 97139; 99285; G0378 ×5; 36415; 81003; 81015; J0696; J1200; J1650; J2543; J3490; J7611; J7620

== ENCOUNTER 2019-09-25 11:10 | Emergency (ER) | payer MEDICARE, OTHER ==
[2019-09-25 13:07] LABS: Bilirubin Negative (Negative); Blood, Urine Negative (Negative); Clarity Clear (Clear); Glucose, Urine (Dipstick) Normal (Negative); Ketone, Urine Negative (Negative); Leukocyte Negative Leu/uL (Negative); Nitrite Negative (Negative); Protein, Urine (Dipstick) Negative (Neg-Trace); Specific Gravity, Urine 1.009 (1.002-1.036); Urobilinogen Normal mg/dL (Less than 2)
[2019-09-25 13:09] LABS: ALT (SGPT) 11 U/L (8-55); AST (SGOT) 19 U/L (5-34); Albumin 4.3 g/dL (3.4-4.8); Alkaline Phosphatase 94 U/L (40-110); Anion Gap 14 mmol/L (10-20); BUN (Urea Nitrogen) 21 mg/dL (9.8-20.1); Bilirubin, Total 0.5 mg/dL (0.2-1.2); Calc. Creatinine Clearance 0 mL/min (70-130); Calcium 9.8 mg/dL (7.8-10.44); Carbon Dioxide 23 mmol/L (23-31); Chloride 104 mmol/L (98-107); Estimated GFR-MDRD 41; Globulin 2.7 g/dL (2.4-3.5); Glucose 96 mg/dL (83-110); Potassium 4.3 mmol/L (3.5-5.1); Sodium 137 mmol/L (136-145)
[2019-09-25 13:29] LABS: #Basophils 0.1 thou/uL (0.0-0.2); #Eosinphils 0.3 thou/uL (0.0-0.7); #Monocytes 0.8 thou/uL (0.11-0.59); #Neutrophils 4.9 thou/uL (1.40-6.50); %Basophils 1.3 % (0.0-1.0); %Eosinophils 4.1 % (0.0-10.0); %Lymphocytes 25.1 % (21.0-51.0); %Monocytes 10.1 % (0.0-10.0); %Neutrophils 59.4 % (42.0-75.0); Hemoglobin 11.8 g/dL (12.0-16.0); Mean Corpuscular HGB CONC 32.7 g/dL (32.0-36.0); Mean Corpuscular Hemoglobin 32.4 pg (27.0-31.0); Mean Corpuscular Volume 98.9 fL (78.0-98.0); Mean Platelet Volume 8.2 fL (7.4-10.4); Platelet Count 268 thou/uL (130-400); Red Blood Cell (RBC) Count 3.64 mill/uL (4.20-5.40); White Blood Cell (WBC) Count 8.2 thou/uL (4.8-10.8)
--- NOTE | 2019-09-25 14:00 | RAD ---
PORTABLE CHEST: History: COPD with worsening dyspnea. Comparison: 10-17-18 FINDINGS: Heart size is within normal limits. There are atherosclerotic changes of the aorta. COPD changes are seen without any definite infiltrative lung process. The bones are demineralized. There is scoliotic change of the spine. IMPRESSION: Chronic lung change. Stable chest. POS: MARTITA
== END 2019-09-25 14:45 | disposition home or self-care (01) ==
LOC: ERS 11:10
DX: J44.1 Chronic obstructive pulmonary disease with (acute) exacerbation (principal); Z86.73 Personal history of transient ischemic attack (TIA), and cerebral infarction without residual deficits; E03.9 Hypothyroidism, unspecified; F03.90 Unspecified dementia, unspecified severity, without behavioral disturbance, psychotic disturbance, mood disturbance, and anxiety; F41.9 Anxiety disorder, unspecified; F32.9 Major depressive disorder, single episode, unspecified; Z87.891 Personal history of nicotine dependence; Z79.899 Other long term (current) drug therapy; Z79.82 Long term (current) use of aspirin
CPT/HCPCS: 36415; 51701; 71045; 80053; 81003; 83880; 84484; 85025; 87077; 87086; 93005

== ENCOUNTER 2019-12-10 16:44 | Emergency (ER) | payer MEDICARE, OTHER ==
--- NOTE | 2019-12-10 17:32 | RAD ---
XR Chest 1 View Portable History: Syncope Comparison: Radiograph August 2019 Findings: Abnormal increased density on the right lower hemithorax from pleural calcifications. Backg round lung hyperinflation. Old left rib fractures. No confluent airspace consolidation, pneumothorax or effusion. Sutures noted along the right lung apex. Impression: Chronic findings. No acute intrathoracic abnormality.
[2019-12-10 17:35] LABS: #Basophils 0.1 thou/uL (0.0-0.2); #Eosinphils 0.3 thou/uL (0.0-0.7); #Lymphocytes 2.2 thou/uL (1.20-3.40); #Monocytes 0.8 thou/uL (0.11-0.59); #Neutrophils 3.7 thou/uL (1.40-6.50); %Basophils 1.9 % (0.0-1.0); %Eosinophils 4.8 % (0.0-10.0); %Lymphocytes 30.4 % (21.0-51.0); %Monocytes 11.2 % (0.0-10.0); %Neutrophils 51.7 % (42.0-75.0); Hemoglobin 10.8 g/dL (12.0-16.0); Mean Corpuscular HGB CONC 33.6 g/dL (32.0-36.0); Mean Corpuscular Hemoglobin 32.8 pg (27.0-31.0); Mean Corpuscular Volume 97.6 fL (78.0-98.0); Platelet Count 272 thou/uL (130-400); RBC Distribution Width 12.1 % (11.5-14.5); Red Blood Cell (RBC) Count 3.29 mill/uL (4.20-5.40); White Blood Cell (WBC) Count 7.1 thou/uL (4.8-10.8)
[2019-12-10 17:55] LABS: ALT (SGPT) 7 U/L (8-55); AST (SGOT) 17 U/L (5-34); Albumin 3.9 g/dL (3.4-4.8); Alkaline Phosphatase 84 U/L (40-110); Anion Gap 14 mmol/L (10-20); BUN (Urea Nitrogen) 22 mg/dL (9.8-20.1); Bilirubin, Total 0.4 mg/dL (0.2-1.2); Calc. Creatinine Clearance 0 mL/min (70-130); Carbon Dioxide 23 mmol/L (23-31); Chloride 104 mmol/L (98-107); Estimated GFR-MDRD 40; Globulin 2.6 g/dL (2.4-3.5); Glucose 98 mg/dL (83-110); Potassium 4.2 mmol/L (3.5-5.1); Protein, Total 6.5 g/dL (6.0-8.3); Sodium 137 mmol/L (136-145)
--- NOTE | 2019-12-10 18:46 | CT ---
CT Brain WO Con History: Syncope Comparison: CT brain January 2019 Findings: Extensive chronic microvascular ischemic changes in the subcortical and deep white matter. No acute hemorrhage or infarct. No midline shift or mass effect. Calvarium is intact. Paranasal sinuses and mastoids are clear. Impression: Chronic findings. No acute intracranial abnormality.
[2019-12-10 19:00] LABS: Bilirubin Negative (Negative); Blood, Urine Negative (Negative); Clarity Clear (Clear); Glucose, Urine (Dipstick) Normal (Negative); Ketone, Urine Negative (Negative); Leukocyte Negative Leu/uL (Negative); Nitrite Negative (Negative); Protein, Urine (Dipstick) Negative (Neg-Trace); Specific Gravity, Urine 1.013 (1.002-1.036); Urobilinogen Normal mg/dL (Less than 2)
== END 2019-12-10 21:15 | disposition home or self-care (01) ==
LOC: ERS 16:44
DX: R53.1 Weakness (principal); Z71.6 Tobacco abuse counseling; E03.9 Hypothyroidism, unspecified; Z86.73 Personal history of transient ischemic attack (TIA), and cerebral infarction without residual deficits; J43.9 Emphysema, unspecified; F41.9 Anxiety disorder, unspecified; F32.9 Major depressive disorder, single episode, unspecified; Z87.891 Personal history of nicotine dependence; Z79.899 Other long term (current) drug therapy; Z79.82 Long term (current) use of aspirin
CPT/HCPCS: 51702; 70450; 71045; 80053; 81003; 84484; 85025; 87086; 93005; 94640; J7620

== ENCOUNTER 2020-04-10 10:06 | Outpatient (CLI) | payer MEDICARE, OTHER ==
--- NOTE | 2020-04-10 12:01 | RAD ---
PA AND LATERAL VIEWS CHEST: HISTORY: Dyspnea. COMPARISON: 12/20/2019. FINDINGS: The heart size is normal. The aorta is tortuous. The lungs are expanded with stable chronic changes . No focal areas of consolidation, pneumothoraces, or pleural effusions are seen. Scoliosis of the spine is again noted. IMPRESSION: Stable exam. No acute process. POS: OFF
== END 2020-04-10 10:07 | disposition home or self-care (01) ==
LOC: BICRAD 10:06
PROVIDERS: ATTEND Internal Medicine Critical Care Medicine
DX: R06.00 Dyspnea, unspecified (principal)
CPT/HCPCS: 71046

== ENCOUNTER 2020-07-12 12:00 | Outpatient (CLI) | payer MEDICARE, OTHER | END 2020-07-12 12:01 | disposition home or self-care (01) | LOC: BICRAD 12:00 | PROVIDERS: ATTEND Internal Medicine Critical Care Medicine | DX: R06.00 Dyspnea, unspecified (principal) | CPT/HCPCS: 71046 ==

== ENCOUNTER 2020-07-28 11:17 | Inpatient (IN) | payer MEDICARE, OTHER ==
[2020-07-28 12:05] LABS: #Basophils 0.1 thou/uL (0.0-0.2); #Eosinphils 0.1 thou/uL (0.0-0.7); #Monocytes 1.1 thou/uL (0.11-0.59); #Neutrophils 9.3 thou/uL (1.40-6.50); %Basophils 0.5 % (0.0-1.0); %Eosinophils 0.8 % (0.0-10.0); %Monocytes 8.6 % (0.0-10.0); %Neutrophils 74.1 % (42.0-75.0); Mean Corpuscular HGB CONC 33.7 g/dL (32.0-36.0); Mean Corpuscular Hemoglobin 31.9 pg (27.0-31.0); Mean Corpuscular Volume 94.7 fL (78.0-98.0); Mean Platelet Volume 7.5 fL (7.4-10.4); Platelet Count 159 thou/uL (130-400); RBC Distribution Width 12.2 % (11.5-14.5); Red Blood Cell (RBC) Count 4.08 mill/uL (4.20-5.40); White Blood Cell (WBC) Count 12.5 thou/uL (4.8-10.8)
[2020-07-28 12:24] LABS: Acetaminophen Less than 6.0 mcg/mL (10.0-30.0); Alcohol Less than 10 mg/dL (Less than 10); CK (CPK) 327 U/L (29-168); Salicylate Less than 8.0 mg/dL (15.0-30.0)
[2020-07-28 12:25] LABS: ALT (SGPT) 13 U/L (8-55); AST (SGOT) 21 U/L (5-34); Albumin 4.3 g/dL (3.4-4.8); Alkaline Phosphatase 96 U/L (40-110); Anion Gap 16 mmol/L (10-20); BUN (Urea Nitrogen) 17 mg/dL (9.8-20.1); Bilirubin, Total 0.8 mg/dL (0.2-1.2); Calc. Creatinine Clearance 0 mL/min (70-130); Calcium 9.5 mg/dL (7.8-10.44); Carbon Dioxide 24 mmol/L (23-31); Chloride 94 mmol/L (98-107); Globulin 2.9 g/dL (2.4-3.5); Glucose 106 mg/dL (83-110); Lipase 27 U/L (8-78); Potassium 4.3 mmol/L (3.5-5.1); Protein, Total 7.2 g/dL (5.8-8.1); Sodium 130 mmol/L (136-145)
[2020-07-28 12:37] LABS: Actual Bicarbonate (HCO3a) 22.1 mEq/L (22-28); Analyzer IN Cardio ER; Base Excess (BEa) -1.5 mEq/L (-2.0 to +3.0); CO2 Tension 33.7 mmHg (35.0-45.0); Calcium, Ionized (arterial) 1.13 mmol/L (1.12-1.30); Carboxyhemoglobin (COHb) 0.2 gm% (0.0-3.0); O2 Tension (PaO2), arterial 69.4 mmHg (> 70.0); Potassium - ABG Lab 4.08 mmol/L (3.70-5.30); pH, Arterial 7.44 (7.35-7.45)
[2020-07-28 12:39] LABS: ALV-art Gradient 38.205 mmHg (0-20); Puncture Site RBA
[2020-07-28 13:25] LABS: Bilirubin Negative (Negative); Blood, Urine Negative (Negative); Clarity Clear (Clear); Glucose, Urine (Dipstick) Normal (Negative); Ketone, Urine Negative (Negative); Leukocyte Negative Leu/uL (Negative); Nitrite Negative (Negative); Protein, Urine (Dipstick) Negative (Neg-Trace); Specific Gravity, Urine 1.013 (1.002-1.036); Urobilinogen Normal mg/dL (Less than 2); pH, Urine 7.5 (5.0-9.0)
[2020-07-28] MEDS ORDERED: Acetaminophen 325 MG TAB PO PRN (13:26)
[2020-07-28] MEDS ORDERED: Ondansetron PF 4 MG/2 ML Vial IVP PRN (13:26)
[2020-07-28] MEDS ORDERED: Senokot S 8.6-50 MG TAB PO PRN (13:26)
[2020-07-28] MEDS ORDERED: Budesonide 0.5 MG/2 ML NEB NEB PRN (13:28)
[2020-07-28] MEDS ORDERED: Ipratropium Bromide 2.5 ml Neb NEB PRN (13:28)
[2020-07-28] MEDS ORDERED: Sodium Chloride 0.9% 1,000 ML IV SCH (13:30)
[2020-07-28 13:34] LABS: Amphetamine Not Detected (NotDetected); Barbiturates Screen Not Detected (NotDetected); Benzodiazepine Screen Not Detected (NotDetected); Cocaine Metabolite Screen Not Detected (NotDetected); Medtox Control Line Valid? VALID (VALID); Medtox Reader # READER 4; Methadone Not Detected (NotDetected); Methamphetamine Not Detected (NotDetected); Opiate Screen Not Detected (NotDetected); Oxycodone Screen Not Detected (NotDetected); Phencyclidine (PCP) Not Detected (NotDetected); THC/Cannabinoid Screen Not Detected (NotDetected); Tricyclic Screen Not Detected (NotDetected)
[2020-07-28] MEDS ORDERED: Clopidogrel Bisulfate 75 MG TAB ONE (13:37)
[2020-07-28] MEDS ORDERED: Aspirin Chewable 81 MG TAB ONE (13:37)
[2020-07-28 16:57] VITALS: BMI 23.7
[2020-07-28] MEDS: Sodium Chloride 0.9% 1,000 ML IV SCH (18:01)
[2020-07-28] MEDS: Arformoterol 15 MCG/2 ML NEB NEB SCH (19:37)
[2020-07-28] MEDS: Atorvastatin Calcium 10 MG TAB PO SCH (21:08)
[2020-07-29] MEDS: Sodium Chloride 0.9% 1,000 ML IV SCH ×2 (03:45→12:54)
[2020-07-29] MEDS: Levothyroxine Sodium 50 MCG TAB PO SCH (05:25)
[2020-07-29 06:06] LABS: ALT (SGPT) 9 U/L (8-55); AST (SGOT) 17 U/L (5-34); Albumin 3.7 g/dL (3.4-4.8); Alkaline Phosphatase 83 U/L (40-110); Anion Gap 13 mmol/L (10-20); BUN (Urea Nitrogen) 16 mg/dL (9.8-20.1); Bilirubin, Total 0.8 mg/dL (0.2-1.2); Calc. Creatinine Clearance 47 mL/min (70-130); Calcium 8.8 mg/dL (7.8-10.44); Carbon Dioxide 24 mmol/L (23-31); Chloride 102 mmol/L (98-107); Globulin 2.5 g/dL (2.4-3.5); Glucose 91 mg/dL (83-110); Potassium 4.6 mmol/L (3.5-5.1); Protein, Total 6.2 g/dL (5.8-8.1); Sodium 134 mmol/L (136-145)
[2020-07-29 06:15] LABS: #Basophils 0.1 thou/uL (0.0-0.2); #Eosinphils 0.4 thou/uL (0.0-0.7); #Monocytes 1.1 thou/uL (0.11-0.59); #Neutrophils 5.9 thou/uL (1.40-6.50); %Basophils 0.7 % (0.0-1.0); %Eosinophils 4.5 % (0.0-10.0); %Lymphocytes 20.8 % (21.0-51.0); %Monocytes 11.2 % (0.0-10.0); %Neutrophils 62.8 % (42.0-75.0); Hemoglobin 11.3 g/dL (12.0-16.0); Mean Corpuscular HGB CONC 33.6 g/dL (32.0-36.0); Mean Corpuscular Hemoglobin 32.4 pg (27.0-31.0); Mean Corpuscular Volume 96.4 fL (78.0-98.0); Mean Platelet Volume 7.2 fL (7.4-10.4); Platelet Count 310 thou/uL (130-400); RBC Distribution Width 12.2 % (11.5-14.5); White Blood Cell (WBC) Count 9.4 thou/uL (4.8-10.8)
[2020-07-29] MEDS: Arformoterol 15 MCG/2 ML NEB NEB SCH ×2 (07:23→19:25)
[2020-07-29] MEDS: Clopidogrel Bisulfate 75 MG TAB PO SCH (08:51)
[2020-07-29] MEDS: Enoxaparin Sodium 40 MG/0.4 ML SYRINGE SC SCH ×2 (08:52→08:53)
[2020-07-29] MEDS: Aspirin 81 mg Enteric Coated Tablet PO SCH (08:52)
[2020-07-29 13:14] LABS: SARS-CoV-2 NAA Rapid Test Not Detected (NotDetected)
[2020-07-29] MEDS: Ferrous Sulfate 325 MG TAB PO SCH (18:37)
[2020-07-29] MEDS ORDERED: Calcium Carbonate 500 MG ChewTAB PO PRN (20:13)
[2020-07-29] MEDS: Atorvastatin Calcium 10 MG TAB PO SCH (20:52)
[2020-07-30] MEDS: Levothyroxine Sodium 50 MCG TAB PO SCH (06:01)
[2020-07-30] MEDS: Arformoterol 15 MCG/2 ML NEB NEB SCH (07:32)
[2020-07-30] MEDS: Aspirin 81 mg Enteric Coated Tablet PO SCH (07:55)
[2020-07-30] MEDS: Clopidogrel Bisulfate 75 MG TAB PO SCH (07:55)
[2020-07-30] MEDS: Ferrous Sulfate 325 MG TAB PO SCH (07:55)
[2020-07-30] MEDS: Enoxaparin Sodium 40 MG/0.4 ML SYRINGE SC SCH (07:56)
[2020-07-30 11:28] VITALS: TEMP 97.8
[2020-07-30 18:42] VITALS: BP 121/65
== END 2020-07-30 15:26 | disposition home health service (06) | DRG 92 ==
LOC: ERS 11:17 → 2SE 12:00
PROVIDERS: ADMIT Internal Medicine; ATTEND Internal Medicine
DX: G92 Toxic encephalopathy (principal); E87.1 Hypo-osmolality and hyponatremia; F05 Delirium due to known physiological condition; Z20.822 Contact with and (suspected) exposure to COVID-19; E03.9 Hypothyroidism, unspecified; F03.90 Unspecified dementia, unspecified severity, without behavioral disturbance, psychotic disturbance, mood disturbance, and anxiety; J43.9 Emphysema, unspecified; F41.9 Anxiety disorder, unspecified; F32.9 Major depressive disorder, single episode, unspecified; E86.0 Dehydration; T43.595A Adverse effect of other antipsychotics and neuroleptics, initial encounter; Z88.1 Allergy status to other antibiotic agents; Z88.2 Allergy status to sulfonamides; Z88.5 Allergy status to narcotic agent; Z88.8 Allergy status to other drugs, medicaments and biological substances; Z79.01 Long term (current) use of anticoagulants; Z79.82 Long term (current) use of aspirin; Z79.899 Other long term (current) drug therapy; Z87.891 Personal history of nicotine dependence; Z79.51 Long term (current) use of inhaled steroids; Z86.73 Personal history of transient ischemic attack (TIA), and cerebral infarction without residual deficits
CPT/HCPCS: 36415; 36416; 36600; 51701; 70450; 71045; 80053; 80306; 80307; 81003; 82140; 82550; 82805; 83690; 84443; 84484; 85025; 93005; 94640; J1650; J7620; U0002; U0005

== ENCOUNTER 2020-08-06 20:03 | Inpatient (IN) | payer MEDICARE, OTHER ==
[2020-08-06 20:43] LABS: #Basophils 0.1 thou/uL (0.0-0.2); #Eosinphils 0.5 thou/uL (0.0-0.7); #Lymphocytes 1.9 thou/uL (1.20-3.40); #Monocytes 1.3 thou/uL (0.11-0.59); #Neutrophils 10.3 thou/uL (1.40-6.50); %Basophils 0.7 % (0.0-1.0); %Eosinophils 3.6 % (0.0-10.0); %Lymphocytes 13.4 % (21.0-51.0); %Neutrophils 73.3 % (42.0-75.0); Hemoglobin 9.9 g/dL (12.0-16.0); Mean Corpuscular HGB CONC 34.9 g/dL (32.0-36.0); Mean Corpuscular Hemoglobin 33.5 pg (27.0-31.0); Mean Corpuscular Volume 96.2 fL (78.0-98.0); Platelet Count 379 thou/uL (130-400); RBC Distribution Width 12.4 % (11.5-14.5); Red Blood Cell (RBC) Count 2.96 mill/uL (4.20-5.40)
[2020-08-06] MEDS ORDERED: methylPREDNISolone Sod Succ/PF 125 MG/2 ML VIAL ONE (20:57)
[2020-08-06] MEDS ORDERED: Albuterol 200 PUFF (6.7GM INHALER) ONE (20:57)
[2020-08-06 21:03] LABS: ALT (SGPT) 11 U/L (8-55); AST (SGOT) 20 U/L (5-34); Alkaline Phosphatase 79 U/L (40-110); Anion Gap 15 mmol/L (10-20); BUN (Urea Nitrogen) 15 mg/dL (9.8-20.1); Bilirubin, Total 0.5 mg/dL (0.2-1.2); Calc. Creatinine Clearance 0 mL/min (70-130); Calcium 9.5 mg/dL (7.8-10.44); Carbon Dioxide 24 mmol/L (23-31); Chloride 100 mmol/L (98-107); Globulin 2.8 g/dL (2.4-3.5); Glucose 114 mg/dL (83-110); Potassium 4.1 mmol/L (3.5-5.1); Protein, Total 6.8 g/dL (5.8-8.1); Sodium 135 mmol/L (136-145)
[2020-08-07 02:36] VITALS: BMI 24.7
[2020-08-07] MEDS ORDERED: Acetaminophen 325 MG TAB PO PRN (03:04)
[2020-08-07] MEDS: Azithromycin 500 MG in Sodium Chloride 0.9% 250 ML 250 ML IVPB SCH (04:08)
[2020-08-07 05:38] LABS: #Lymphocytes 0.8 thou/uL (1.20-3.40); #Monocytes 0.1 thou/uL (0.11-0.59); %Basophils 0.2 % (0.0-1.0); %Eosinophils 0.2 % (0.0-10.0); %Lymphocytes 7.8 % (21.0-51.0); %Monocytes 1.2 % (0.0-10.0); %Neutrophils 90.7 % (42.0-75.0); Hemoglobin 10.2 g/dL (12.0-16.0); Mean Corpuscular HGB CONC 33.8 g/dL (32.0-36.0); Mean Corpuscular Hemoglobin 32.8 pg (27.0-31.0); Mean Platelet Volume 7.1 fL (7.4-10.4); Platelet Count 373 thou/uL (130-400); RBC Distribution Width 12.3 % (11.5-14.5); Red Blood Cell (RBC) Count 3.11 mill/uL (4.20-5.40)
[2020-08-07 05:48] LABS: SARS-CoV-2 NAA Rapid Test Not Detected (NotDetected)
[2020-08-07 05:54] LABS: Anion Gap 16 mmol/L (10-20); BUN (Urea Nitrogen) 14 mg/dL (9.8-20.1); Calc. Creatinine Clearance 45 mL/min (70-130); Calcium 9.4 mg/dL (7.8-10.44); Carbon Dioxide 22 mmol/L (23-31); Chloride 101 mmol/L (98-107); Glucose 148 mg/dL (83-110); Potassium 4.8 mmol/L (3.5-5.1); Sodium 134 mmol/L (136-145)
[2020-08-07] MEDS: methylPREDNISolone Sod Succ 40 MG VIAL IVP SCH ×2 (08:58→16:43)
[2020-08-07] MEDS: Enoxaparin Sodium 40 MG/0.4 ML SYRINGE SC SCH (08:58)
[2020-08-07] MEDS: Benzonatate 100 MG CAP PO SCH ×2 (13:59→22:11)
[2020-08-08] MEDS: Azithromycin 500 MG in Sodium Chloride 0.9% 250 ML 250 ML IVPB SCH (04:46)
[2020-08-08] MEDS: Levothyroxine Sodium 50 MCG TAB PO SCH (05:39)
[2020-08-08 06:05] LABS: #Lymphocytes 1.1 thou/uL (1.20-3.40); #Monocytes 0.7 thou/uL (0.11-0.59); #Neutrophils 8.7 thou/uL (1.40-6.50); %Basophils 0.2 % (0.0-1.0); %Eosinophils 0.2 % (0.0-10.0); %Lymphocytes 10.3 % (21.0-51.0); %Neutrophils 82.4 % (42.0-75.0); Hemoglobin 9.8 g/dL (12.0-16.0); Mean Corpuscular HGB CONC 33.2 g/dL (32.0-36.0); Mean Corpuscular Hemoglobin 32.2 pg (27.0-31.0); Mean Corpuscular Volume 96.9 fL (78.0-98.0); Mean Platelet Volume 7.5 fL (7.4-10.4); Platelet Count 407 thou/uL (130-400); RBC Distribution Width 12.4 % (11.5-14.5); Red Blood Cell (RBC) Count 3.05 mill/uL (4.20-5.40); White Blood Cell (WBC) Count 10.6 thou/uL (4.8-10.8)
[2020-08-08 06:28] LABS: Anion Gap 12 mmol/L (10-20); BUN (Urea Nitrogen) 21 mg/dL (9.8-20.1); Calc. Creatinine Clearance 46 mL/min (70-130); Calcium 9.3 mg/dL (7.8-10.44); Carbon Dioxide 24 mmol/L (23-31); Chloride 101 mmol/L (98-107); Glucose 119 mg/dL (83-110); Potassium 4.4 mmol/L (3.5-5.1); Sodium 133 mmol/L (136-145)
[2020-08-08] MEDS: Clopidogrel Bisulfate 75 MG TAB PO SCH (07:57)
[2020-08-08] MEDS: Enoxaparin Sodium 40 MG/0.4 ML SYRINGE SC SCH (07:57)
[2020-08-08] MEDS: Benzonatate 100 MG CAP PO SCH ×3 (07:58→21:05)
[2020-08-08] MEDS: Aspirin 81 mg Enteric Coated Tablet PO SCH (07:58)
[2020-08-08] MEDS: methylPREDNISolone Sod Succ 40 MG VIAL IVP SCH ×2 (07:58→15:36)
[2020-08-09] MEDS: Azithromycin 500 MG in Sodium Chloride 0.9% 250 ML 250 ML IVPB SCH ×2 (04:04→04:15)
[2020-08-09] MEDS ORDERED: Azithromycin 250 MG TAB PO SCH (05:00)
[2020-08-09] MEDS: Levothyroxine Sodium 50 MCG TAB PO SCH (05:19)
[2020-08-09 06:21] LABS: Anion Gap 14 mmol/L (10-20); BUN (Urea Nitrogen) 26 mg/dL (9.8-20.1); Calc. Creatinine Clearance 40 mL/min (70-130); Calcium 9.2 mg/dL (7.8-10.44); Carbon Dioxide 23 mmol/L (23-31); Chloride 101 mmol/L (98-107); Glucose 112 mg/dL (83-110); Magnesium 2.2 mg/dL (1.6-2.6); Potassium 4.1 mmol/L (3.5-5.1); Sodium 134 mmol/L (136-145)
[2020-08-09 06:25] LABS: #Lymphocytes 1.8 thou/uL (1.20-3.40); #Neutrophils 9.9 thou/uL (1.40-6.50); %Basophils 0.1 % (0.0-1.0); %Eosinophils 0.1 % (0.0-10.0); %Neutrophils 77.7 % (42.0-75.0); Mean Corpuscular Hemoglobin 33.1 pg (27.0-31.0); Mean Corpuscular Volume 97.3 fL (78.0-98.0); Mean Platelet Volume 7.2 fL (7.4-10.4); Platelet Count 416 thou/uL (130-400); RBC Distribution Width 12.3 % (11.5-14.5); Red Blood Cell (RBC) Count 3.02 mill/uL (4.20-5.40); White Blood Cell (WBC) Count 12.7 thou/uL (4.8-10.8)
[2020-08-09] MEDS: Clopidogrel Bisulfate 75 MG TAB PO SCH (08:11)
[2020-08-09] MEDS: Benzonatate 100 MG CAP PO SCH ×2 (08:11→15:49)
[2020-08-09] MEDS: Aspirin 81 mg Enteric Coated Tablet PO SCH (08:11)
[2020-08-09] MEDS: Enoxaparin Sodium 40 MG/0.4 ML SYRINGE SC SCH (08:11)
[2020-08-09] MEDS: methylPREDNISolone Sod Succ 40 MG VIAL IVP SCH (08:18)
[2020-08-09 15:10] VITALS: BP 134/81; TEMP 98.1
== END 2020-08-09 16:16 | disposition home health service (06) | DRG 191 ==
LOC: ERS 20:03 → T4-B 08-07 00:47 → OBSVTOIN 08-09 10:32
PROVIDERS: ADMIT Student in an Organized Health Care Education/Training Program; ATTEND Internal Medicine
DX: J43.9 Emphysema, unspecified (principal); E87.1 Hypo-osmolality and hyponatremia; Z20.822 Contact with and (suspected) exposure to COVID-19; E03.9 Hypothyroidism, unspecified; F41.9 Anxiety disorder, unspecified; D72.829 Elevated white blood cell count, unspecified; F03.90 Unspecified dementia, unspecified severity, without behavioral disturbance, psychotic disturbance, mood disturbance, and anxiety; F32.9 Major depressive disorder, single episode, unspecified; Z87.891 Personal history of nicotine dependence; Z88.1 Allergy status to other antibiotic agents; Z88.5 Allergy status to narcotic agent; Z79.01 Long term (current) use of anticoagulants; Z79.890 Hormone replacement therapy; Z88.2 Allergy status to sulfonamides; Z88.8 Allergy status to other drugs, medicaments and biological substances; Z86.73 Personal history of transient ischemic attack (TIA), and cerebral infarction without residual deficits
CPT/HCPCS: 36415; 71045; 80048; 80053; 83735; 85025; 85379; 93005; 94640; 94760; 96374; J0456; J1650; J2920; J2930; J7050; J7620; U0002; U0005

== ENCOUNTER 2020-08-14 13:05 | Emergency (ER) | payer MEDICARE, OTHER ==
[2020-08-14 14:19] LABS: %Eosinophils 3.8 % (0.0-10.0); %Lymphocytes 22.1 % (21.0-51.0); %Monocytes 10.4 % (0.0-10.0); %Neutrophils 62.4 % (42.0-75.0); Hemoglobin 10.4 g/dL (12.0-16.0); Mean Corpuscular HGB CONC 33.8 g/dL (32.0-36.0); Mean Corpuscular Hemoglobin 32.5 pg (27.0-31.0); Mean Corpuscular Volume 96.2 fL (78.0-98.0); Mean Platelet Volume 7.3 fL (7.4-10.4); Platelet Count 430 thou/uL (130-400); White Blood Cell (WBC) Count 11.2 thou/uL (4.8-10.8)
[2020-08-14 14:20] LABS: #Basophils 0.1 thou/uL (0.0-0.2); #Eosinphils 0.4 thou/uL (0.0-0.7); #Lymphocytes 2.5 thou/uL (1.20-3.40); #Monocytes 1.2 thou/uL (0.11-0.59); %Basophils 1.2 % (0.0-1.0)
[2020-08-14 15:28] LABS: ALT (SGPT) 10 U/L (8-55); AST (SGOT) 13 U/L (5-34); Albumin 3.8 g/dL (3.4-4.8); Alkaline Phosphatase 80 U/L (40-110); Anion Gap 9 mmol/L (10-20); BUN (Urea Nitrogen) 21 mg/dL (9.8-20.1); Bilirubin, Total 0.4 mg/dL (0.2-1.2); Calc. Creatinine Clearance 0 mL/min (70-130); Calcium 9.4 mg/dL (7.8-10.44); Carbon Dioxide 30 mmol/L (23-31); Chloride 100 mmol/L (98-107); Globulin 2.8 g/dL (2.4-3.5); Glucose 102 mg/dL (83-110); Potassium 3.9 mmol/L (3.5-5.1); Protein, Total 6.6 g/dL (5.8-8.1); Sodium 135 mmol/L (136-145)
[2020-08-14 16:15] LABS: Bacteria/HPF None Seen HPF (None Seen); Bilirubin Negative (Negative); Blood, Urine Negative (Negative); Clarity Clear (Clear); Glucose, Urine (Dipstick) Normal (Negative); Ketone, Urine Negative (Negative); Leukocyte 75 Leu/uL (Negative); Nitrite Negative (Negative); Protein, Urine (Dipstick) Negative (Neg-Trace); RBC/HPF 0-3 HPF (0-3); Specific Gravity, Urine 1.012 (1.002-1.036); Squamous Epithelial 0-3 HPF (0-3); Urobilinogen Normal mg/dL (Less than 2)
== END 2020-08-14 17:41 | disposition home or self-care (01) ==
LOC: ERS 13:05
DX: N39.0 Urinary tract infection, site not specified (principal); R53.1 Weakness; J43.9 Emphysema, unspecified; E03.9 Hypothyroidism, unspecified; F03.90 Unspecified dementia, unspecified severity, without behavioral disturbance, psychotic disturbance, mood disturbance, and anxiety; Z86.73 Personal history of transient ischemic attack (TIA), and cerebral infarction without residual deficits; Z87.891 Personal history of nicotine dependence; Z79.02 Long term (current) use of antithrombotics/antiplatelets; Z79.52 Long term (current) use of systemic steroids; Z79.899 Other long term (current) drug therapy
CPT/HCPCS: 36415; 51701; 80053; 81003; 81015; 85025; 87086; 93005

== ENCOUNTER 2020-08-16 16:07 | Inpatient (IN) | payer MEDICARE, OTHER ==
[2020-08-16] MEDS ORDERED: Acetaminophen 500 MG TAB ONE (16:48)
[2020-08-16] MEDS ORDERED: cefTRIAXone\\ROCEPHIN 1 GM VIAL ONE (16:48)
[2020-08-16] MEDS ORDERED: Rocuronium Bromide 10 MG/ML (10ML VIAL) ONE (16:58)
[2020-08-16] MEDS ORDERED: Ketamine 50 MG/ML (10ML VIAL) ONE (16:58)
[2020-08-16] MEDS ORDERED: EPINEPHrine 1 MG/ML VIAL ONE (17:02)
[2020-08-16 17:03] LABS: Hemoglobin 10.6 g/dL (12.0-16.0); Mean Corpuscular HGB CONC 31.8 g/dL (32.0-36.0); Mean Corpuscular Hemoglobin 30.4 pg (27.0-31.0); Mean Corpuscular Volume 95.7 fL (78.0-98.0); Mean Platelet Volume 7.5 fL (7.4-10.4); Platelet Count 385 thou/uL (130-400); RBC Distribution Width 12.2 % (11.5-14.5); Red Blood Cell (RBC) Count 3.49 mill/uL (4.20-5.40); White Blood Cell (WBC) Count 15.5 thou/uL (4.8-10.8)
[2020-08-16] MEDS ORDERED: Norepinephrine 8 MG/0.9% NS 250 ML ONE (17:09)
[2020-08-16] MEDS ORDERED: Vancomycin 1 GM/200 ML BAG ONE (17:19)
[2020-08-16] MEDS ORDERED: Piperacillin/Tazobactam 4.5 GM VIAL ONE (17:19)
[2020-08-16 17:24] LABS: Band 42 % (5-11); Lymphocytes 3 % (21-51); MDiff Complete? YES; Monocytes 2 % (0-10); Neutrophil 53 % (42-75); Platelet Morphology Comment Appears Adequate; Polychromasia SLIGHT = 2-3 cells (100X) (0-2/hpf); Reflex for Review?? YES
[2020-08-16 17:26] LABS: Actual Bicarbonate (HCO3a) 16.3 mEq/L (22-28); Analyzer IN Cardio ER; Base Excess (BEa) -12.8 mEq/L (-2.0 to +3.0); CO2 Tension 55.1 mmHg (35.0-45.0); Calcium, Ionized (arterial) 1.05 mmol/L (1.12-1.30); Carboxyhemoglobin (COHb) 0.2 gm% (0.0-3.0); Hemoglobin (Hb) 8.3 g/dL (12.0-16.0); O2 Tension (PaO2), arterial 488.4 mmHg (> 70.0)
[2020-08-16 17:28] LABS: ALT (SGPT) 12 U/L (8-55); AST (SGOT) 22 U/L (5-34); Albumin 3.9 g/dL (3.4-4.8); Alkaline Phosphatase 83 U/L (40-110); Anion Gap 15 mmol/L (10-20); BUN (Urea Nitrogen) 19 mg/dL (9.8-20.1); Bilirubin, Total 0.6 mg/dL (0.2-1.2); Calc. Creatinine Clearance 0 mL/min (70-130); Calcium 9.4 mg/dL (7.8-10.44); Carbon Dioxide 24 mmol/L (23-31); Chloride 98 mmol/L (98-107); Globulin 2.7 g/dL (2.4-3.5); Glucose 140 mg/dL (83-110); Potassium 4.3 mmol/L (3.5-5.1); Protein, Total 6.6 g/dL (5.8-8.1); Sodium 133 mmol/L (136-145)
[2020-08-16 17:37] LABS: pH, Arterial 7.09 (7.35-7.45)
[2020-08-16 17:38] LABS: ALV-art Gradient 155.725 mmHg (0-20); Puncture Site RRA
[2020-08-16] MEDS ORDERED: Fentanyl 100 MCG/2 ML VIAL ONE (17:42)
[2020-08-16] MEDS ORDERED: Fentanyl CADD 100 ML IV SCH (17:45)
[2020-08-16 17:47] LABS: Bilirubin Negative (Negative); Blood, Urine Negative (Negative); Clarity Clear (Clear); Glucose, Urine (Dipstick) Normal (Negative); Ketone, Urine Negative (Negative); Leukocyte Negative Leu/uL (Negative); Nitrite Negative (Negative); Protein, Urine (Dipstick) 10 mg/dL (Neg-Trace); Specific Gravity, Urine 1.019 (1.002-1.036); Urobilinogen Normal mg/dL (Less than 2); pH, Urine 6.5 (5.0-9.0)
[2020-08-16 18:05] LABS: INR-International Normal Ratio 1.5; Prothrombin Time 18.6 sec (12.0-14.7)
[2020-08-16 18:06] LABS: PTT 35.8 sec (22.9-36.1)
[2020-08-16] MEDS ORDERED: Ondansetron PF 4 MG/2 ML Vial IVP PRN (19:12)
[2020-08-16] MEDS ORDERED: hydrALAZINE 20 MG/ML VIAL SLOW IVP PRN (19:12)
[2020-08-16] MEDS ORDERED: Promethazine HCl 12.5 MG in Sodium Chloride 0.9% 50 ML IVPB PRN (19:12)
[2020-08-16] MEDS ORDERED: Electrolyte Replacement Protocol 1 EACH FS SCH (19:15)
[2020-08-16] MEDS ORDERED: Budesonide 0.5 MG/2 ML NEB NEB PRN (19:17)
[2020-08-16] MEDS ORDERED: Insulin Regular 300 UNITS/3 ML VIAL SC PRN (19:24)
[2020-08-16] MEDS ORDERED: Mag-Al 1200 mg/1200 mg/30 ML UDCUP PO PRN (19:24)
[2020-08-16] MEDS ORDERED: Bisacodyl 10 MG SUPP PR PRN (19:24)
[2020-08-16] MEDS ORDERED: Norepinephrine 8 MG/0.9% NS 250 ML IVPB PRN (19:24)
[2020-08-16] MEDS ORDERED: Milk Of Magnesia 30 ML UDCUP PO PRN (19:24)
[2020-08-16] MEDS ORDERED: Ventilator Sedation Protocol 1 EACH FS SCH (19:30)
[2020-08-16 19:31] LABS: SARS-CoV-2 NAA Rapid Test Not Detected (NotDetected)
[2020-08-16] MEDS ORDERED: Electrolyte Replacement Protocol FS PRN (20:00)
[2020-08-16] MEDS ORDERED: Hydrocortisone Sod Succ/PF 100 mg/2 ml Vial IVP SCH (20:00)
[2020-08-16] MEDS ORDERED: Fentanyl BOLUS 250 ML IVPB PRN (20:15)
[2020-08-16] MEDS ORDERED: Morphine 2 MG/ML VIAL SLOW IVP PRN (20:15)
[2020-08-16] MEDS ORDERED: Lorazepam 2 MG/ML VIAL SLOW IVP PRN (20:15)
[2020-08-16] MEDS ORDERED: DISCONTINUE PREVIOUS NARCOTIC PAIN MEDICATIONS AND BENZODIAZEPINES FS SCH (20:15)
[2020-08-16] MEDS ORDERED: Propofol BOLUS 1,000 MG/100 ML VIAL IV PRN (20:15)
[2020-08-16] MEDS ORDERED: Famotidine 20 MG TAB PER TUBE SCH (21:00)
[2020-08-16] MEDS: Enoxaparin Sodium 40 MG/0.4 ML SYRINGE SC SCH (21:35)
[2020-08-16] MEDS: Propofol 1,000 MG/100 ML VIAL IV PRN (21:36)
[2020-08-16] MEDS ORDERED: EPINEPHrine 4 MG in Dextrose 5% in Water 250 ML IV SCH (21:45)
[2020-08-16] MEDS: Arformoterol 15 MCG/2 ML NEB NEB SCH (22:39)
[2020-08-16] MEDS: Sodium Chloride 0.9% 1,000 ML IV SCH (23:45)
[2020-08-17] MEDS: Piperacillin/Tazobactam 3.375 GM in Sodium Chloride 0.9% 100 ML IVPB SCH ×2 (01:52→05:18)
[2020-08-17] MEDS: Hydrocortisone Sod Succ/PF 100 mg/2 ml Vial IVP SCH ×3 (04:52→21:05)
[2020-08-17 04:56] LABS: Hemoglobin 9.2 g/dL (12.0-16.0); Mean Corpuscular HGB CONC 33.4 g/dL (32.0-36.0); Mean Corpuscular Hemoglobin 32.4 pg (27.0-31.0); Mean Platelet Volume 7.9 fL (7.4-10.4); Platelet Count 296 thou/uL (130-400); RBC Distribution Width 12.3 % (11.5-14.5); Red Blood Cell (RBC) Count 2.84 mill/uL (4.20-5.40); White Blood Cell (WBC) Count 27.5 thou/uL (4.8-10.8)
[2020-08-17 05:11] LABS: Thyroid Stimulating Hormone 0.8601 uIU/mL (0.35-4.94)
[2020-08-17] MEDS: Levothyroxine Sodium 50 MCG TAB PER TUBE SCH (05:18)
[2020-08-17] MEDS ORDERED: Fentanyl CADD 100 ML ONE ×2 (05:22→20:05)
[2020-08-17] MEDS: Sodium Chloride 0.9% 1,000 ML IV SCH (05:27)
[2020-08-17] MEDS: Fentanyl CADD 100 ML IV SCH ×2 (05:28→20:12)
[2020-08-17 05:42] LABS: Free T4 (Free Thyroxine) 1.07 ng/dL (0.70-1.48)
[2020-08-17 05:50] LABS: Anion Gap 11 mmol/L (10-20); BUN (Urea Nitrogen) 24 mg/dL (9.8-20.1); Calc. Creatinine Clearance 24 mL/min (70-130); Calcium 7.5 mg/dL (7.8-10.44); Carbon Dioxide 20 mmol/L (23-31); Chloride 105 mmol/L (98-107); Glucose 278 mg/dL (83-110); Magnesium 1.7 mg/dL (1.6-2.6); Potassium 4.3 mmol/L (3.5-5.1); Sodium 132 mmol/L (136-145)
[2020-08-17 06:10] LABS: Band 32 % (5-11); Lymphocytes 2 % (21-51); MDiff Complete? YES; Monocytes 5 % (0-10); Neutrophil 61 % (42-75)
[2020-08-17] MEDS ORDERED: Magnesium 2 GM/50 ML 2 GM in Premix Bag 1 BAG IVPB SCH (06:15)
[2020-08-17 07:29] LABS: Actual Bicarbonate (HCO3a) 18.1 mEq/L (22-28); Base Excess (BEa) -7.3 mEq/L (-2.0 to +3.0); CO2 Tension 36.1 mmHg (35.0-45.0); Calcium, Ionized (arterial) 1.11 mmol/L (1.12-1.30); Carboxyhemoglobin (COHb) 0.3 gm% (0.0-3.0); O2 Tension (PaO2), arterial 93.1 mmHg (> 70.0); Potassium - ABG Lab 3.75 mmol/L (3.70-5.30); pH, Arterial 7.32 (7.35-7.45)
[2020-08-17 07:33] LABS: ALV-art Gradient 146.975 mmHg (0-20); Puncture Site RRA
[2020-08-17] MEDS: Pantoprazole 40 MG GRANULES PACKET PER TUBE SCH (07:58)
[2020-08-17] MEDS: Clopidogrel Bisulfate 75 MG TAB PER TUBE SCH (07:58)
[2020-08-17] MEDS: Aspirin Chewable 81 MG TAB PER TUBE SCH (07:58)
[2020-08-17] MEDS: Arformoterol 15 MCG/2 ML NEB NEB SCH ×2 (08:28→19:51)
[2020-08-17] MEDS ORDERED: Sodium Bicarbonate 100 MEQ in Sodium Chloride 0.45% 1,000 ML IV SCH (11:30)
[2020-08-17 11:50] LABS: Lactic Acid 1.8 mmol/L (0.5-2.2)
[2020-08-17] MEDS ORDERED: Benzocaine 20% Spray 60 ML CAN PO SCH (12:45)
[2020-08-17] MEDS: MEROPENEM 1 GM/50 ML 1 GM in Premix Bag 1 BAG IVPB SCH ×2 (14:07→21:06)
[2020-08-17 14:35] LABS: Troponin I 0.172 ng/mL (< 0.028)
[2020-08-17 15:13] LABS: Strep pneumo Urine Ag NEGATIVE (NEGATIVE)
[2020-08-17] MEDS: Vancomycin HCl 750 MG in Sodium Chloride 0.9% 250 ML 250 ML IVPB SCH (16:17)
[2020-08-17] MEDS: Propofol 1,000 MG/100 ML VIAL IV PRN (16:26)
[2020-08-17] MEDS ORDERED: Vancomycin HCl 500 MG in Sodium Chloride 0.9% 100 ML IVPB SCH (17:00)
[2020-08-17] MEDS ORDERED: Vancomycin HCl 750 MG in Sodium Chloride 0.9% 250 ML 250 ML IVPB SCH (17:00)
[2020-08-17] MEDS: Enoxaparin Sodium 40 MG/0.4 ML SYRINGE SC SCH (21:05)
[2020-08-18] MEDS: Propofol 1,000 MG/100 ML VIAL IV PRN (00:27)
[2020-08-18] MEDS: Hydrocortisone Sod Succ/PF 100 mg/2 ml Vial IVP SCH ×3 (04:00→21:22)
[2020-08-18 04:40] LABS: #Eosinphils 0.1 thou/uL (0.0-0.7); #Lymphocytes 1.7 thou/uL (1.20-3.40); #Neutrophils 20.3 thou/uL (1.40-6.50); %Basophils 0.1 % (0.0-1.0); %Eosinophils 0.3 % (0.0-10.0); %Monocytes 8.3 % (0.0-10.0); %Neutrophils 84.3 % (42.0-75.0); Hemoglobin 8.2 g/dL (12.0-16.0); Mean Corpuscular HGB CONC 32.3 g/dL (32.0-36.0); Mean Corpuscular Hemoglobin 30.8 pg (27.0-31.0); Mean Corpuscular Volume 95.4 fL (78.0-98.0); Mean Platelet Volume 7.9 fL (7.4-10.4); Platelet Count 289 thou/uL (130-400); RBC Distribution Width 12.3 % (11.5-14.5); Red Blood Cell (RBC) Count 2.67 mill/uL (4.20-5.40); White Blood Cell (WBC) Count 24.1 thou/uL (4.8-10.8)
[2020-08-18 04:59] LABS: Anion Gap 12 mmol/L (10-20); Carbon Dioxide 21 mmol/L (23-31); Chloride 107 mmol/L (98-107); Potassium 3.5 mmol/L (3.5-5.1); Sodium 136 mmol/L (136-145)
[2020-08-18 05:00] LABS: BUN (Urea Nitrogen) 24 mg/dL (9.8-20.1); Calc. Creatinine Clearance 25 mL/min (70-130); Calcium 7.8 mg/dL (7.8-10.44); Glucose 106 mg/dL (83-110); Magnesium 2.5 mg/dL (1.6-2.6)
[2020-08-18] MEDS: Levothyroxine Sodium 50 MCG TAB PER TUBE SCH (05:15)
[2020-08-18] MEDS: MEROPENEM 1 GM/50 ML 1 GM in Premix Bag 1 BAG IVPB SCH ×3 (05:15→21:22)
[2020-08-18] MEDS ORDERED: Fentanyl CADD 100 ML ONE (05:27)
[2020-08-18] MEDS: Fentanyl CADD 100 ML IV SCH (05:29)
[2020-08-18] MEDS: Aspirin Chewable 81 MG TAB PER TUBE SCH (10:40)
[2020-08-18] MEDS: Pantoprazole 40 MG GRANULES PACKET PER TUBE SCH (10:40)
[2020-08-18] MEDS: Clopidogrel Bisulfate 75 MG TAB PER TUBE SCH (10:40)
[2020-08-18] MEDS: Potassium Chloride 20 MEQ in Premix Bag 1 BAG IVPB SCH ×3 (10:41→16:37)
[2020-08-18] MEDS ORDERED: Potassium Chloride 20 MEQ in Premix Bag 1 BAG IVPB SCH (16:30)
[2020-08-18 16:36] LABS: Vancomycin, Trough 11.4 ug/mL
[2020-08-18] MEDS: VANCOMYCIN 1.25 GM/250 ML BAG 1.25 GM in Premix Bag 1 BAG IVPB SCH (18:14)
[2020-08-18] MEDS: Arformoterol 15 MCG/2 ML NEB NEB SCH (19:00)
[2020-08-18] MEDS: Vancomycin HCl 750 MG in Sodium Chloride 0.9% 250 ML 250 ML IVPB SCH (20:52)
[2020-08-18] MEDS: Enoxaparin Sodium 30 MG/0.3 ML SYRINGE SC SCH (21:23)
[2020-08-19 05:04] LABS: #Lymphocytes 0.6 thou/uL (1.20-3.40); #Monocytes 0.9 thou/uL (0.11-0.59); #Neutrophils 17.3 thou/uL (1.40-6.50); %Basophils 0.3 % (0.0-1.0); %Eosinophils 0.1 % (0.0-10.0); %Lymphocytes 3.4 % (21.0-51.0); %Neutrophils 91.3 % (42.0-75.0); Hemoglobin 8.3 g/dL (12.0-16.0); Mean Corpuscular HGB CONC 33.3 g/dL (32.0-36.0); Mean Corpuscular Hemoglobin 32.3 pg (27.0-31.0); Mean Corpuscular Volume 97.1 fL (78.0-98.0); Mean Platelet Volume 7.9 fL (7.4-10.4); Platelet Count 235 thou/uL (130-400); RBC Distribution Width 12.5 % (11.5-14.5); Red Blood Cell (RBC) Count 2.57 mill/uL (4.20-5.40)
[2020-08-19 05:31] LABS: Anion Gap 16 mmol/L (10-20); BUN (Urea Nitrogen) 25 mg/dL (9.8-20.1); Calc. Creatinine Clearance 27 mL/min (70-130); Calcium 8.2 mg/dL (7.8-10.44); Carbon Dioxide 16 mmol/L (23-31); Chloride 108 mmol/L (98-107); Glucose 111 mg/dL (83-110); Magnesium 2.1 mg/dL (1.6-2.6); Potassium 4.6 mmol/L (3.5-5.1); Sodium 135 mmol/L (136-145)
[2020-08-19] MEDS: MEROPENEM 1 GM/50 ML 1 GM in Premix Bag 1 BAG IVPB SCH ×3 (05:36→21:40)
[2020-08-19] MEDS: Hydrocortisone Sod Succ/PF 100 mg/2 ml Vial IVP SCH ×2 (05:37→11:30)
[2020-08-19] MEDS: Levothyroxine Sodium 50 MCG TAB PER TUBE SCH (05:38)
[2020-08-19] MEDS: Arformoterol 15 MCG/2 ML NEB NEB SCH ×2 (07:30→18:35)
[2020-08-19] MEDS: Clopidogrel Bisulfate 75 MG TAB PO SCH (09:15)
[2020-08-19] MEDS: Aspirin Chewable 81 MG TAB PO SCH (09:15)
[2020-08-19] MEDS: Acetaminophen 650 MG/20.3 ML UDCUP PO PRN (11:30)
[2020-08-19] MEDS: VANCOMYCIN 1.25 GM/250 ML BAG 1.25 GM in Premix Bag 1 BAG IVPB SCH (17:33)
[2020-08-19] MEDS: Enoxaparin Sodium 30 MG/0.3 ML SYRINGE SC SCH (20:56)
[2020-08-20] MEDS: Levothyroxine Sodium 50 MCG TAB PO SCH (06:00)
[2020-08-20] MEDS: MEROPENEM 1 GM/50 ML 1 GM in Premix Bag 1 BAG IVPB SCH ×3 (06:00→23:47)
[2020-08-20] MEDS: Acetaminophen 650 MG/20.3 ML UDCUP PO PRN (06:07)
[2020-08-20] MEDS: Arformoterol 15 MCG/2 ML NEB NEB SCH ×2 (06:57→18:28)
[2020-08-20] MEDS: Labetalol HCl 100 MG/20 ML VIAL SLOW IVP PRN ×2 (08:37→13:31)
[2020-08-20] MEDS: Clopidogrel Bisulfate 75 MG TAB PO SCH (08:39)
[2020-08-20] MEDS: Aspirin Chewable 81 MG TAB PO SCH (08:40)
[2020-08-20] MEDS ORDERED: methylPREDNISolone Sod Succ/PF 125 MG/2 ML VIAL IVP SCH (11:15)
[2020-08-20 17:18] LABS: Vancomycin, Trough 18.3 ug/mL
[2020-08-20] MEDS ORDERED: ALPRAZolam 0.25 MG TAB PO PRN (17:40)
[2020-08-20 17:56] LABS: Actual Bicarbonate (HCO3a) 25.3 mEq/L (22-28); Base Excess (BEa) 0.4 mEq/L (-2.0 to +3.0); CO2 Tension 41.8 mmHg (35.0-45.0); Calcium, Ionized (arterial) 1.17 mmol/L (1.12-1.30); Carboxyhemoglobin (COHb) 0.3 gm% (0.0-3.0); Hemoglobin (Hb) 10.7 g/dL (12.0-16.0); Potassium - ABG Lab 3.73 mmol/L (3.70-5.30)
[2020-08-20 17:57] LABS: Puncture Site LRA
[2020-08-20] MEDS: VANCOMYCIN 1.25 GM/250 ML BAG 1.25 GM in Premix Bag 1 BAG IVPB SCH (18:24)
[2020-08-20] MEDS: methylPREDNISolone Sod Succ/PF 125 MG/2 ML VIAL IVP SCH (22:22)
[2020-08-20] MEDS: Enoxaparin Sodium 30 MG/0.3 ML SYRINGE SC SCH (22:22)
[2020-08-21 05:19] LABS: #Basophils 0.1 thou/uL (0.0-0.2); #Eosinphils 0.1 thou/uL (0.0-0.7); #Lymphocytes 1.3 thou/uL (1.20-3.40); #Monocytes 0.8 thou/uL (0.11-0.59); #Neutrophils 12.2 thou/uL (1.40-6.50); %Basophils 0.8 % (0.0-1.0); %Eosinophils 0.4 % (0.0-10.0); %Lymphocytes 8.9 % (21.0-51.0); %Monocytes 5.5 % (0.0-10.0); %Neutrophils 84.4 % (42.0-75.0); Hemoglobin 9.8 g/dL (12.0-16.0); Mean Corpuscular HGB CONC 33.8 g/dL (32.0-36.0); Mean Corpuscular Hemoglobin 32.4 pg (27.0-31.0); Mean Corpuscular Volume 95.9 fL (78.0-98.0); Mean Platelet Volume 7.7 fL (7.4-10.4); Platelet Count 276 thou/uL (130-400); RBC Distribution Width 12.4 % (11.5-14.5); Red Blood Cell (RBC) Count 3.02 mill/uL (4.20-5.40); White Blood Cell (WBC) Count 14.5 thou/uL (4.8-10.8)
[2020-08-21 05:44] LABS: Anion Gap 16 mmol/L (10-20); BUN (Urea Nitrogen) 28 mg/dL (9.8-20.1); Calc. Creatinine Clearance 45 mL/min (70-130); Calcium 8.8 mg/dL (7.8-10.44); Carbon Dioxide 23 mmol/L (23-31); Chloride 100 mmol/L (98-107); Glucose 83 mg/dL (83-110); Potassium 3.7 mmol/L (3.5-5.1); Sodium 135 mmol/L (136-145)
[2020-08-21] MEDS: Labetalol HCl 100 MG/20 ML VIAL SLOW IVP PRN ×2 (06:12→11:53)
[2020-08-21] MEDS: Levothyroxine Sodium 50 MCG TAB PO SCH (06:17)
[2020-08-21] MEDS: Arformoterol 15 MCG/2 ML NEB NEB SCH ×2 (07:11→20:17)
[2020-08-21] MEDS: Aspirin Chewable 81 MG TAB PO SCH (08:50)
[2020-08-21] MEDS: Clopidogrel Bisulfate 75 MG TAB PO SCH (08:50)
[2020-08-21] MEDS: methylPREDNISolone Sod Succ/PF 125 MG/2 ML VIAL IVP SCH ×2 (08:51→21:09)
[2020-08-21] MEDS ORDERED: ALPRAZolam 0.25 MG TAB PO SCH (09:00)
[2020-08-21] MEDS ORDERED: Dextrose 50% Abboject 50 ML SYRINGE SLOW IVP PRN (10:09)
[2020-08-21] MEDS ORDERED: Dextrose 5% in Water 1,000 ML IV PRN (10:09)
[2020-08-21] MEDS: MEROPENEM 1 GM/50 ML 1 GM in Premix Bag 1 BAG IVPB SCH ×2 (11:54→23:43)
[2020-08-21] MEDS ORDERED: BIOTENE MOUTH SPRAY 44.3 ML MM PRN (14:57)
[2020-08-21] MEDS: Morphine 2 MG/ML VIAL SLOW IVP PRN ×6 (15:29→23:42)
[2020-08-21] MEDS ORDERED: Bumetanide 1 MG/4 ML VIAL IVP SCH (15:45)
[2020-08-21] MEDS: VANCOMYCIN 1.25 GM/250 ML BAG 1.25 GM in Premix Bag 1 BAG IVPB SCH (17:33)
[2020-08-21] MEDS: Enoxaparin Sodium 40 MG/0.4 ML SYRINGE SC SCH (21:09)
[2020-08-22] MEDS: Morphine 2 MG/ML VIAL SLOW IVP PRN ×7 (02:09→20:29)
[2020-08-22] MEDS: ALPRAZolam 0.25 MG TAB PO PRN (02:48)
[2020-08-22] MEDS: Levothyroxine Sodium 50 MCG TAB PO SCH (05:03)
[2020-08-22 05:05] LABS: #Basophils 0.1 thou/uL (0.0-0.2); #Eosinphils 0.1 thou/uL (0.0-0.7); #Lymphocytes 0.7 thou/uL (1.20-3.40); #Monocytes 0.7 thou/uL (0.11-0.59); #Neutrophils 12.2 thou/uL (1.40-6.50); %Basophils 1.1 % (0.0-1.0); %Eosinophils 0.5 % (0.0-10.0); %Lymphocytes 5.3 % (21.0-51.0); %Monocytes 4.7 % (0.0-10.0); %Neutrophils 88.5 % (42.0-75.0); Hemoglobin 9.8 g/dL (12.0-16.0); Mean Corpuscular HGB CONC 32.9 g/dL (32.0-36.0); Mean Corpuscular Hemoglobin 31.5 pg (27.0-31.0); Mean Corpuscular Volume 95.7 fL (78.0-98.0); Mean Platelet Volume 7.9 fL (7.4-10.4); Platelet Count 330 thou/uL (130-400); RBC Distribution Width 12.3 % (11.5-14.5); Red Blood Cell (RBC) Count 3.13 mill/uL (4.20-5.40); White Blood Cell (WBC) Count 13.8 thou/uL (4.8-10.8)
[2020-08-22 05:31] LABS: Anion Gap 13 mmol/L (10-20); BUN (Urea Nitrogen) 36 mg/dL (9.8-20.1); Calc. Creatinine Clearance 43 mL/min (70-130); Carbon Dioxide 27 mmol/L (23-31); Chloride 95 mmol/L (98-107); Glucose 169 mg/dL (83-110); Potassium 3.8 mmol/L (3.5-5.1); Sodium 131 mmol/L (136-145)
[2020-08-22] MEDS: Bumetanide 1 MG/4 ML VIAL IVP SCH ×2 (05:34→15:43)
[2020-08-22] MEDS: Arformoterol 15 MCG/2 ML NEB NEB SCH ×2 (07:33→19:09)
[2020-08-22] MEDS: Aspirin Chewable 81 MG TAB PO SCH (09:16)
[2020-08-22] MEDS: Clopidogrel Bisulfate 75 MG TAB PO SCH (09:16)
[2020-08-22] MEDS: methylPREDNISolone Sod Succ/PF 125 MG/2 ML VIAL IVP SCH ×2 (09:17→20:52)
[2020-08-22] MEDS: MEROPENEM 1 GM/50 ML 1 GM in Premix Bag 1 BAG IVPB SCH (11:45)
[2020-08-22] MEDS: Labetalol HCl 100 MG/20 ML VIAL SLOW IVP PRN (11:47)
[2020-08-22 13:40] VITALS: BMI 22.1
[2020-08-22] MEDS: Lidocaine 4% Topical Sol 50 ML BOT TOP SCH ×2 (15:42→20:47)
[2020-08-22 17:21] LABS: Vancomycin, Trough 24.4 ug/mL
[2020-08-22] MEDS ORDERED: Vancomycin 1 GM in Premix Bag 1 BAG IVPB SCH (18:00)
[2020-08-22] MEDS ORDERED: Amlodipine 5 MG TAB PO SCH (18:45)
[2020-08-22] MEDS: Enoxaparin Sodium 40 MG/0.4 ML SYRINGE SC SCH (20:47)
[2020-08-22] MEDS ORDERED: Morphine 2 MG/ML VIAL SLOW IVP PRN (21:04)
[2020-08-22] MEDS: methylPREDNISolone Sod Succ 40 MG VIAL IVP SCH (21:35)
[2020-08-23 04:46] LABS: #Eosinphils 0.1 thou/uL (0.0-0.7); #Lymphocytes 0.9 thou/uL (1.20-3.40); #Monocytes 0.5 thou/uL (0.11-0.59); #Neutrophils 11.4 thou/uL (1.40-6.50); %Eosinophils 0.8 % (0.0-10.0); %Lymphocytes 6.8 % (21.0-51.0); %Monocytes 3.8 % (0.0-10.0); %Neutrophils 88.6 % (42.0-75.0); Hemoglobin 9.6 g/dL (12.0-16.0); Mean Corpuscular HGB CONC 32.7 g/dL (32.0-36.0); Mean Corpuscular Hemoglobin 31.6 pg (27.0-31.0); Mean Corpuscular Volume 96.5 fL (78.0-98.0); Mean Platelet Volume 7.8 fL (7.4-10.4); Platelet Count 322 thou/uL (130-400); RBC Distribution Width 12.5 % (11.5-14.5); Red Blood Cell (RBC) Count 3.04 mill/uL (4.20-5.40); White Blood Cell (WBC) Count 12.9 thou/uL (4.8-10.8)
[2020-08-23 05:11] LABS: Anion Gap 15 mmol/L (10-20); BUN (Urea Nitrogen) 37 mg/dL (9.8-20.1); Calc. Creatinine Clearance 41 mL/min (70-130); Calcium 8.9 mg/dL (7.8-10.44); Carbon Dioxide 32 mmol/L (23-31); Chloride 91 mmol/L (98-107); Glucose 141 mg/dL (83-110); Potassium 3.8 mmol/L (3.5-5.1); Sodium 134 mmol/L (136-145)
[2020-08-23] MEDS: Bumetanide 1 MG/4 ML VIAL IVP SCH (06:30)
[2020-08-23] MEDS: Levothyroxine Sodium 50 MCG TAB PO SCH (06:30)
[2020-08-23] MEDS: Amlodipine 5 MG TAB PO SCH (08:37)
[2020-08-23] MEDS: Aspirin Chewable 81 MG TAB PO SCH (08:37)
[2020-08-23] MEDS: Clopidogrel Bisulfate 75 MG TAB PO SCH (08:37)
[2020-08-23] MEDS: Lidocaine 4% Topical Sol 50 ML BOT TOP SCH ×3 (08:39→21:18)
[2020-08-23] MEDS: ALPRAZolam 0.25 MG TAB PO PRN (10:32)
[2020-08-23] MEDS: Morphine 2 MG/ML VIAL SLOW IVP PRN (17:29)
[2020-08-23] MEDS: Tamsulosin HCl 0.4 MG CAP PO SCH (20:57)
[2020-08-23] MEDS: Enoxaparin Sodium 40 MG/0.4 ML SYRINGE SC SCH (20:58)
[2020-08-23] MEDS: methylPREDNISolone Sod Succ 40 MG VIAL IVP SCH (20:58)
[2020-08-24 04:49] LABS: #Eosinphils 0.1 thou/uL (0.0-0.7); #Lymphocytes 1.2 thou/uL (1.20-3.40); #Monocytes 0.8 thou/uL (0.11-0.59); #Neutrophils 12.3 thou/uL (1.40-6.50); %Basophils 0.3 % (0.0-1.0); %Eosinophils 0.5 % (0.0-10.0); %Lymphocytes 8.3 % (21.0-51.0); %Monocytes 5.8 % (0.0-10.0); %Neutrophils 85.1 % (42.0-75.0); Hemoglobin 9.6 g/dL (12.0-16.0); Mean Corpuscular HGB CONC 32.9 g/dL (32.0-36.0); Mean Corpuscular Hemoglobin 31.3 pg (27.0-31.0); Mean Corpuscular Volume 95.2 fL (78.0-98.0); Mean Platelet Volume 7.6 fL (7.4-10.4); Platelet Count 327 thou/uL (130-400); RBC Distribution Width 12.7 % (11.5-14.5); Red Blood Cell (RBC) Count 3.05 mill/uL (4.20-5.40); White Blood Cell (WBC) Count 14.4 thou/uL (4.8-10.8)
[2020-08-24 05:10] LABS: Anion Gap 14 mmol/L (10-20); BUN (Urea Nitrogen) 44 mg/dL (9.8-20.1); Calc. Creatinine Clearance 41 mL/min (70-130); Calcium 8.9 mg/dL (7.8-10.44); Carbon Dioxide 34 mmol/L (23-31); Chloride 88 mmol/L (98-107); Glucose 134 mg/dL (83-110); Magnesium 1.9 mg/dL (1.6-2.6); Potassium 3.7 mmol/L (3.5-5.1); Sodium 132 mmol/L (136-145)
[2020-08-24] MEDS ORDERED: Magnesium 2 GM/50 ML 2 GM in Premix Bag 1 BAG IVPB SCH (06:15)
[2020-08-24] MEDS: Levothyroxine Sodium 50 MCG TAB PO SCH (06:30)
[2020-08-24] MEDS: Polyethylene Glycol 3350 17 GM Packet PO SCH (09:20)
[2020-08-24] MEDS: Aspirin Chewable 81 MG TAB PO SCH (09:20)
[2020-08-24] MEDS: Clopidogrel Bisulfate 75 MG TAB PO SCH (09:21)
[2020-08-24] MEDS: Amlodipine 5 MG TAB PO SCH (09:21)
[2020-08-24] MEDS: Morphine 2 MG/ML VIAL SLOW IVP PRN ×3 (09:22→20:36)
[2020-08-24] MEDS: Lidocaine 4% Topical Sol 50 ML BOT TOP SCH ×3 (09:23→20:34)
[2020-08-24] MEDS ORDERED: Magnesium Citrate 300 ML BOT PO SCH (11:15)
[2020-08-24] MEDS: methylPREDNISolone Sod Succ 40 MG VIAL IVP SCH (20:33)
[2020-08-24] MEDS: Enoxaparin Sodium 40 MG/0.4 ML SYRINGE SC SCH (20:33)
[2020-08-24] MEDS: Tamsulosin HCl 0.4 MG CAP PO SCH (20:33)
[2020-08-25 04:36] LABS: #Eosinphils 0.1 thou/uL (0.0-0.7); #Lymphocytes 0.7 thou/uL (1.20-3.40); #Monocytes 0.5 thou/uL (0.11-0.59); #Neutrophils 10.5 thou/uL (1.40-6.50); %Basophils 0.3 % (0.0-1.0); %Eosinophils 0.7 % (0.0-10.0); %Lymphocytes 6.2 % (21.0-51.0); %Monocytes 3.9 % (0.0-10.0); %Neutrophils 88.9 % (42.0-75.0); Hemoglobin 9.3 g/dL (12.0-16.0); Mean Corpuscular HGB CONC 34.2 g/dL (32.0-36.0); Mean Corpuscular Hemoglobin 32.8 pg (27.0-31.0); Mean Platelet Volume 7.6 fL (7.4-10.4); Platelet Count 314 thou/uL (130-400); RBC Distribution Width 12.9 % (11.5-14.5); Red Blood Cell (RBC) Count 2.84 mill/uL (4.20-5.40); White Blood Cell (WBC) Count 11.8 thou/uL (4.8-10.8)
[2020-08-25 05:00] LABS: Anion Gap 11 mmol/L (10-20); BUN (Urea Nitrogen) 46 mg/dL (9.8-20.1); Calc. Creatinine Clearance 42 mL/min (70-130); Calcium 8.8 mg/dL (7.8-10.44); Carbon Dioxide 37 mmol/L (23-31); Chloride 87 mmol/L (98-107); Glucose 143 mg/dL (83-110); Sodium 131 mmol/L (136-145)
[2020-08-25] MEDS: Levothyroxine Sodium 50 MCG TAB PO SCH (06:07)
[2020-08-25] MEDS: Clopidogrel Bisulfate 75 MG TAB PO SCH (09:21)
[2020-08-25] MEDS: Lidocaine 4% Topical Sol 50 ML BOT TOP SCH ×2 (09:21→15:34)
[2020-08-25] MEDS: Polyethylene Glycol 3350 17 GM Packet PO SCH (09:21)
[2020-08-25] MEDS: Amlodipine 5 MG TAB PO SCH (09:22)
[2020-08-25] MEDS: Aspirin Chewable 81 MG TAB PO SCH (09:22)
[2020-08-25] MEDS: ALPRAZolam 0.25 MG TAB PO PRN (10:34)
[2020-08-25] MEDS: Morphine 2 MG/ML VIAL SLOW IVP PRN ×2 (11:30→15:34)
[2020-08-25 11:51] VITALS: TEMP 98
[2020-08-25 16:30] VITALS: BP 112/56
== END 2020-08-25 16:20 | disposition hospice, home (50) | DRG 871 ==
LOC: ERS 16:07 → CCU 18:20 → 2NO 08-18 20:13
PROVIDERS: ADMIT Internal Medicine; ATTEND Internal Medicine
PROC: 02HV33Z Insertion of Infusion Device into Superior Vena Cava, Percutaneous Approach (ICD-10-PCS; principal; 2020-08-16)
PROC: 0T9B70Z Drainage of Bladder with Drainage Device, Via Natural or Artificial Opening (ICD-10-PCS; 2020-08-16)
PROC: 5A12012 Performance of Cardiac Output, Single, Manual (ICD-10-PCS; 2020-08-16)
PROC: 3E033XZ Introduction of Vasopressor into Peripheral Vein, Percutaneous Approach (ICD-10-PCS; 2020-08-16)
PROC: 0BH17EZ Insertion of Endotracheal Airway into Trachea, Via Natural or Artificial Opening (ICD-10-PCS; 2020-08-16)
PROC: 5A1945Z Respiratory Ventilation, 24-96 Consecutive Hours (ICD-10-PCS; 2020-08-16)
PROC: 0B9C8ZZ Drainage of Right Upper Lung Lobe, Via Natural or Artificial Opening Endoscopic (ICD-10-PCS; 2020-08-17)
PROC: 0BC38ZZ Extirpation of Matter from Right Main Bronchus, Via Natural or Artificial Opening Endoscopic (ICD-10-PCS; 2020-08-17)
DX: A41.9 Sepsis, unspecified organism (principal); J96.21 Acute and chronic respiratory failure with hypoxia; S22.5XXA Flail chest, initial encounter for closed fracture; J96.22 Acute and chronic respiratory failure with hypercapnia; J18.9 Pneumonia, unspecified organism; I46.9 Cardiac arrest, cause unspecified; R65.21 Severe sepsis with septic shock; N17.9 Acute kidney failure, unspecified; J81.1 Chronic pulmonary edema; M96.89 Other intraoperative and postprocedural complications and disorders of the musculoskeletal system; Z66 Do not resuscitate; Z20.822 Contact with and (suspected) exposure to COVID-19; E03.9 Hypothyroidism, unspecified; J43.9 Emphysema, unspecified; I10 Essential (primary) hypertension; E78.5 Hyperlipidemia, unspecified; F03.90 Unspecified dementia, unspecified severity, without behavioral disturbance, psychotic disturbance, mood disturbance, and anxiety; F41.9 Anxiety disorder, unspecified; R91.8 Other nonspecific abnormal finding of lung field; T85.898A Other specified complication of other internal prosthetic devices, implants and grafts, initial encounter; Y84.8 Other medical procedures as the cause of abnormal reaction of the patient, or of later complication, without mention of misadventure at the time of the procedure; J39.8 Other specified diseases of upper respiratory tract; R73.9 Hyperglycemia, unspecified; K59.00 Constipation, unspecified; X58.XXXA Exposure to other specified factors, initial encounter; Z90.49 Acquired absence of other specified parts of digestive tract; Z87.891 Personal history of nicotine dependence; Z99.81 Dependence on supplemental oxygen; Z86.73 Personal history of transient ischemic attack (TIA), and cerebral infarction without residual deficits; Z88.1 Allergy status to other antibiotic agents; Z88.5 Allergy status to narcotic agent; Z88.2 Allergy status to sulfonamides; Z88.8 Allergy status to other drugs, medicaments and biological substances; Z79.01 Long term (current) use of anticoagulants; Z79.82 Long term (current) use of aspirin; Z79.51 Long term (current) use of inhaled steroids; Z79.52 Long term (current) use of systemic steroids; Z79.899 Other long term (current) drug therapy; R33.9 Retention of urine, unspecified; Z82.49 Family history of ischemic heart disease and other diseases of the circulatory system; Z80.9 Family history of malignant neoplasm, unspecified; Z82.3 Family history of stroke; Z81.8 Family history of other mental and behavioral disorders; Z79.890 Hormone replacement therapy; T38.0X5A Adverse effect of glucocorticoids and synthetic analogues, initial encounter; I95.9 Hypotension, unspecified
CPT/HCPCS: 0240U; 31624; 36415; 36416; 36556; 36600; 51702; 70450; 71045; 71275; 74177; 80048; 80053; 80202; 81003; 82805; 83605; 83735; 83880; 84439; 84443; 84484; 85025; 85060; 85610; 85652; 85730; 86140; 87040; 87070; 87086; 87205; 87449; 92950; 93005; 93010; 93306; 94002; 94003; 94640; 94760; 96365; 96366; 96367; 96368; 99292; J0171; J0360; J0696; J1650; J1720; J1815; J2185; J2270; J2543; J2704; J2920; J2930; J3010; J3370; J3475; J3480; J3490; J7050; J7070; J7620